=== PATIENT | female | born 1935 | race Caucasian/White ===

== ENCOUNTER 2017-02-08 10:47 | Inpatient (IN) | payer MEDICARE, OTHER ==
--- NOTE | 2017-02-08 11:06 | ER Document Report ---
ED Dizziness/Weakness - General Stated Complaint: DOES NOT FEEL RIGHT Time Seen by Provider: 02/08/17 10:55 Mode of Arrival: Medic Information source: Patient TRAVEL OUTSIDE OF THE [place] 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 She had a similar episode on the way in to the emergency department. She reports that she is just so tired she can't keep her awake. She reports symptoms now for approximately 2 days. She admits to working outside. She has no focal weakness that she knows but she is so weak she can barely walk. She denies any pain including headache and chest discomfort. She has had some mild shortness of breath with exertion as well. No speech or swallowing problems that she reports though EMS reported to staff that she was having some difficulty with speaking. Patient does report having a history of petit mal seizures for approximately 26 is and had been on Depakote but came off of Depakote and has not had any for many years now. She does continue to take Aggrenox - Related Data Allergies/Adverse Reactions: carbamazepine [From Tegretol] Allergy (Verified 02/08/17 11:20) levofloxacin [From Levaquin] Allergy (Verified 02/08/17 11:20) Past Medical History - General Information source: Patient - Social History Smoking Status: Never Smoker Family History: Reviewed & Not Pertinent Neurological Medical History: Reports: Hx Seizures, Other - TIA Endocrine Medical History: Denies: Hx Diabetes Mellitus Type 1, Hx Diabetes Mellitus Type 2 Malignancy Medical History: Reports: None Review of Systems - Review of Systems -: Yes All other systems reviewed and negative Physical Exam - Vital signs Vitals: Pulse Resp BP Pulse Ox 70 17 173/81 H 98 02/08/17 10:55 02/08/17 10:55 02/08/17 10:55 02/08/17 10:55 Interpretation: Hypertensive - Notes Notes: GENERAL: VS as per nursing doc. Well-appearing, well-nourished and in no acute distress. Appears generally weak and falls asleep during exam requires tactile stimuli to come around HEAD: Atraumatic, normocephalic. EYES: Pupils equal round and reactive to light, extraocular movements intact, sclera anicteric, no conjunctival injection or discharge. ENT: Nares patent, oropharynx clear without exudates. Moist mucous membranes. NECK: Normal range of motion, supple, no carotid bruits. LUNGS: Breath sounds clear to auscultation bilaterally and equal. No wheezes rales or rhonchi. HEART: Normal S1S2. Regular rate and rhythm without murmurs. Equal peripheral pulses. ABDOMEN: Soft, non-tender. No appreciable mass. EXTREMITIES: Normal range of motion. No calf tenderness. Negative Homans. No edema. NEUROLOGICAL: GCS 15, Cranial nerves II-XII intact. Normal visual gupta. Normal speech without aphasia. No pronator drift. 5/5 RUE strength, 4/5 RLE strength with difficulty holding off the bed, 5/5 LUE strength, 5/5 LLE strength. No cerebellar abnormalities including normal finger-nose testing. Negative Babinski, 2+= DTR refelexes. PSYCH: Normal mood, somewhat flat affect. SKIN: Warm, Dry, no cyanosis, Cap refill < 2 sec. Course - Re-evaluation Re-evalutation: 02/08/17 11:07 Patient not TPA candidate with isolated right lower extremity weakness, consideration for other etiology and time of LKN. 02/08/17 12:07 We ambulated the patient in the room. She seemed somewhat unsteady and seemed to be weaker in her right leg. 02/08/17 16:36 The MRI shows appropriate aging of the brain. No clear infarct was noted. I discussed with the patient transferred for further neurology workup and she is refusing at this point stating she feels much better. She does agree to a road test and understands risks associated 02/08/17 17:16 We again discussed after ambulating and patient not doing very well somewhat ataxic even having to put arm up the next step. She does not want to go anywhere else but I am uncomfortable with her going home alone she has never used a walker and was ambulating well until the last day. Spoke with Dr. Keller , we will talk with Dr. Zhou. 02/08/17 17:22 Dr. Zhou will see and evaluate the patient. Reviewed laboratory studies with the patient. - Vital Signs Vital signs: Temp Pulse Resp BP Pulse Ox 97.5 F 61 14 149/98 H 98 02/08/17 11:10 02/08/17 16:55 02/08/17 18:03 02/08/17 18:03 02/08/17 18:03 - Laboratory Result Diagrams: 02/08/17 11:05 02/08/17 11:05 Laboratory results interpreted by me: 02/08/17 11:55 Urine Ascorbic Acid 20 H - Diagnostic Test Radiology reviewed: Image reviewed, Reports reviewed - CT scan of the head shows maxillary sinusitis but no other significant acute intracranial abnormality. Chest x-ray without acute disease. - EKG Interpretation by Hi EKG shows normal: Sinus rhythm - Rate normal at 64 with borderline left axis deviation and septal Q waves but no obvious injury current - Consults Dr. Ramirez Time consulted: 12:37 - he did not feel comfortable admitting the patient as we do not have a neurologist manager interventional and requested an MRI to be done as there is a question of seizures versus CVA. Discharge - Discharge Clinical Impression: Ataxia, Generalized weakness Condition: Fair Disposition: ADMITTED OBSERVATION Admitting Provider: Dr. Zhou Unit Admitted: Medical Floor
[2017-02-08 11:20] LABS: ABSOLUTE LYMPHOCYTES (AUTO) 1.7 10^3/uL (0.5-4.7); ABSOLUTE MONOCYTES (AUTO) 0.5 10^3/uL (0.1-1.4); ABSOLUTE NEUT (AUTO) 2.1 10^3/uL (1.7-8.2); BASOPHILS % (AUTO) 0.3 % (0-2); EOSINOPHILS % (AUTO) 0.7 % (0-6); HEMATOCRIT 39.6 % (36.0-47.0); HEMOGLOBIN 13.2 g/dL (12.0-15.5); LYMPHOCYTES % (AUTO) 39.5 % (13-45); MEAN CORPUSCULAR HEMOGLOBIN 27.7 pg (27.0-33.4); MEAN CORPUSCULAR HGB CONC 33.2 g/dL (32.0-36.0); MEAN CORPUSCULAR VOLUME 83 fl (80-97); MONOCYTES % (AUTO) 11.8 % (3-13); RED BLOOD COUNT 4.75 10^6/uL (3.72-5.28); RED CELL DISTRIBUTION WIDTH 13.8 % (11.5-14.0); SEGMENTED NEUTROPHILS % (AUTO) 47.7 % (42-78); WHITE BLOOD COUNT 4.4 10^3/uL (4.0-10.5)
[2017-02-08 11:31] LABS: PROTHROMBIN TIME 12.6 SEC (11.4-15.4)
[2017-02-08 11:42] LABS: ALANINE AMINOTRANSFERASE 27 U/L (9-52); ALBUMIN 4.2 g/dL (3.5-5.0); ALKALINE PHOSPHATASE 75 U/L (38-126); ANION GAP 8 (5-19); ASPARTATE AMINO TRANSFERASE 21 U/L (14-36); BILIRUBIN,DIRECT 0.3 mg/dL (0.0-0.4); BILIRUBIN,TOTAL 0.7 mg/dL (0.2-1.3); BLOOD UREA NITROGEN 18 mg/dL (7-20); CALCIUM 9.8 mg/dL (8.4-10.2); CARBON DIOXIDE 26 mmol/L (22-30); CHLORIDE 106 mmol/L (98-107); CREATININE RESULT 0.76 mg/dL (0.52-1.25); GLUCOSE 88 mg/dL (75-110); POTASSIUM 4.3 mmol/L (3.6-5.0); SODIUM 139.5 mmol/L (137-145); TOTAL PROTEIN 6.8 g/dL (6.3-8.2)
[2017-02-08 12:14] LABS: APPEARANCE,URINE SLIGHTLY-CLOUDY; BILIRUBIN,URINE NEGATIVE (NEGATIVE); GLUCOSE, URINE NEGATIVE (NEGATIVE); KETONES,URINE NEGATIVE (NEGATIVE); LEUKOCYTE ESTERASE,URINE NEGATIVE (NEGATIVE); NITRITE,URINE NEGATIVE (NEGATIVE); PROTEIN,URINE NEGATIVE (NEGATIVE); URINE SPECIFIC GRAVITY 1.014; UROBILINOGEN,URINE NEGATIVE mg/dL (<2.0)
--- NOTE | 2017-02-08 18:49 | PDOC H&P ---
History of Present Illness Admission Date/PCP: SUKH NORTON MD Patient complains of: weakness and "I couldn't talk" History of Present Illness: SHARITA CORNELL is a 81 year old female presents to the ED with a myriad of complaints that I will try to outline below. She reports a viral upper respiratory infection in November of this year, evaluated at [facility] for temperature of 103 and given IV fluids and Zithromax with resolution of her fever but ever since that time she has had a dull frontal headache, generalized weakness, exertional dyspnea, exercise fatigue, difficulty sleeping, on and off constipation, heat intolerance, ankle cramping during the night. She was seen at her PCP office this morning for routine annual follow-up blood while lying on the table awaiting her doctor's arrival, she experienced symptoms of inability to talk or move. She states this came on rather suddenly and without warning, lasted several minutes unsure the exact amount of time and spontaneously resolved. She was aware of her surroundings hear people talking but when she tried to call out for help she couldn't do so and when she tried to get up off the table she could not move her arms or legs and could not turn her head. She also reports right greater than left legs went numb. She has never had anything like this before. She had a "mini stroke" in 2014 spending 3 days at [facility] undergoing a full workup and had no residual deficits. Her initial symptoms included weakness of her bilateral lower extremities, and inability to control her extremities and an inability to talk. She is supposed to be taking Aggrenox twice a day and Crestor nightly but often forgets to take her evening medications. 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 She has never been seen by a seizure specialist or neurologist and last known seizure was 23 years ago, so her PCP has weaned her off her long-term Depakote over the last several years with her last dose given over a year ago. 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 ER physician attempted to ambulate her anticipating possible discharge home but she had a very broad-based uneven unsteady gait reaching out with her right arm steady herself and he did not feel comfortable sending her home at this time, asking us to admit for overnight observation and further evaluation. Past Medical History Cardiac Medical History: Reports: Hyperlipidema Pulmonary Medical History: Reports: None Neurological Medical History: Reports: Seizures, Other - TIA Denies: Migraine Endocrine Medical History: Denies: Diabetes Mellitus Type 1, Diabetes Mellitus Type 2 Malignancy Medical History: Reports: None Musculoskeltal Medical History: Reports: None Psychiatric Medical History: Reports: None Traumatic Medical History: Reports: None Past Surgical History Past Surgical History: Reports: Section, Cholecystectomy, Tonsillectomy Social History Information Source: Patient Smoking Status: Never Smoker Frequency of Alcohol Use: None Hx Recreational Drug Use: No Hx Prescription Drug Abuse: No - Advance Directive Resuscitation Status: Full Code Family History Family History: CVA Parental Family History Reviewed: Yes - father had seizures, mother had strokes Children Family History Reviewed: Yes Sibling(s) Family History Reviewed.: Yes Medication/Allergy Allergies/Adverse Reactions: carbamazepine [From Tegretol] Allergy (Verified 02/08/17 11:20) levofloxacin [From Levaquin] Allergy (Verified 02/08/17 11:20) Review of Systems Constitutional: PRESENT: as per HPI Eyes: ABSENT: visual disturbances Ears: ABSENT: hearing changes Nose, Mouth, and Throat: ABSENT: vertigo Cardiovascular: PRESENT: as per HPI. ABSENT: chest pain Respiratory: PRESENT: as per HPI. ABSENT: sputum Gastrointestinal: PRESENT: as per HPI. ABSENT: abdominal pain, nausea, vomiting Genitourinary: PRESENT: other - Dark, concentrated urine Musculoskeletal: PRESENT: as per HPI Neurological: PRESENT: as per HPI Psychiatric: ABSENT: anxiety, depression Endocrine: PRESENT: as per HPI Hematologic/Lymphatic: ABSENT: easy bleeding, easy bruising Physical Exam Vital Signs: Temp Pulse Resp BP Pulse Ox 97.5 F 61 17 128/71 H 97 02/08/17 11:10 02/08/17 16:55 02/08/17 16:55 02/08/17 16:55 02/08/17 16:55 Intake & Output 05/15/17 05/16/17 05/17/17 06:59 06:59 06:59 Weight 53.07 kg PHYSICAL EXAM GENERAL: NAD; well developed, well nourished; no obese; alert and oriented to person, place, time, situation HEENT: normocephalic, atraumatic; EOMI, PERRLA, no conjunctival injection, no scleral icterus; oral mucosa moist, neck supple, no LAD, normal ROM RESPIRATORY: no accessory muscle use, no increased WOB, good air entry bilaterally; no wheezes, rales, rhonchi; no inspiratory crackles CARDIO: no JVD; RRR; no systolic murmur; no tachycardia VASCULAR: no carotid bruit; no abdominal bruit; no pallor; 2+ radial, DP pulse ; normal capillary refill GI: soft; nondistended; normal bowel sounds; no hepato spleno megaly; no rebound, rigidity, guarding; nontender NEURO: Decreased bilateral patella reflexes; normal sensation; motor function- right arm weak compared to the left with very subtle right pronator drift; gait abnl with wide broad-based unsteady gait; no dysarthria; no nystagmus; tongue protrudes midline; normal finger to nose; able to cross midline with finger to ear; unable to stand with eyes closed to check Rhomberg; no clonus MSK: normal ROM hips; no tenderness EXTREMITIES: no calf tender; no palpable cords in calf; no clubbing, cyanosis , pedal edema PSYCH: normal affect, normal mood SKIN: warm; moist; no petechiae; no telengectasias; no jaundice; no rash Results Laboratory Results: 02/08/17 11:05 02/08/17 11:05 02/08/17 02/08/17 02/08/17 11:05 11:05 11:55 WBC 4.4 RBC 4.75 Hgb 13.2 Hct 39.6 MCV 83 MCH 27.7 MCHC 33.2 RDW 13.8 Plt Count 199 Seg Neutrophils % 47.7 Lymphocytes % 39.5 Monocytes % 11.8 Eosinophils % 0.7 Basophils % 0.3 Absolute Neutrophils 2.1 Absolute Lymphocytes 1.7 Absolute Monocytes 0.5 Absolute Eosinophils 0.0 Absolute Basophils 0.0 Sodium 139.5 Potassium 4.3 Chloride 106 Carbon Dioxide 26 Anion Gap 8 BUN 18 Creatinine 0.76 Est GFR ( Amer) > 60 Est GFR (Non-Af Amer) > 60 Glucose 88 Calcium 9.8 Magnesium 2.0 Total Bilirubin 0.7 AST 21 ALT 27 Alkaline Phosphatase 75 Total Protein 6.8 Albumin 4.2 Urine Color YELLOW Urine Appearance SLIGHTLY-CLOUDY Urine pH 7.0 Ur Specific [place] 1.014 Urine Protein NEGATIVE Urine Glucose (UA) NEGATIVE Urine Ketones NEGATIVE Urine Blood NEGATIVE Urine Nitrite NEGATIVE Ur Leukocyte Esterase NEGATIVE Urine WBC (Auto) 1 Urine RBC (Auto) 2 02/08/17 11:05 Troponin I < 0.012 Impressions: Chest X-Ray 02/08/17 11:11 IMPRESSION: NO ACUTE RADIOGRAPHIC FINDING IN THE CHEST. Head CT 02/08/17 11:11 IMPRESSION: Mild left maxillary sinus disease with no acute intracranial pathology. Head MRI 02/08/17 12:38 IMPRESSION: Age-appropriate spotty white matter disease in the bifrontal and biparietal regions. No MR evidence of acute ischemic change, acute intracranial hemorrhage mass effect or shift. No posterior fossa lesions are identified. Status: Image reviewed by me - Agree with radiology, there is an area on T2 imaging in the right parietal that could be subacute but on diffusion-weighted imaging argues against. Assessment & Plan - Diagnosis (1) Generalized weakness Is this a current diagnosis for this admission?: YesPlan: Unclear etiology. Will complete the metabolic workup with phosphorus, CK, CK-MB , TSH, free T4. 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 (2) Ataxic gait Is this a current diagnosis for this admission?: YesPlan: Unclear etiology. Check B12 level. Consult physical therapy. Check orthostatic vital signs. Check bilateral carotid Dopplers. (3) Seizure disorder Is this a current diagnosis for this admission?: YesPlan: Unknown whether this is recurrent for her or not, we'll check an EEG in the off chance we might get her answer. Patient was instructed regarding signs and symptoms of recurrent seizures. She may need outpatient neurologic evaluation for recurrent symptoms. Monitor overnight for recurrent seizure activity. - Time Time Spent: Greater than 70 Minutes Medications reviewed and adjusted accordingly: Yes Anticipated discharge: Home Within: within 24 hours - Plan Summary Plan Summary: Overall rather confusing clinical picture with a myriad of symptoms that don't all tie together neatly under a single diagnosis. Perform the above workup as outlined but I am not convinced that all find pathologic process or etiology of her symptoms. If no recurrence then will discharge home with close outpatient follow-up through her PCP.
[2017-02-08] MEDS ORDERED: ENOXAPARIN SODIUM INJ 40 MG/0.4 ML DISP.SYRIN SUBCUT ONE (19:30)
[2017-02-08] MEDS: NORMAL SALINE 1000 ML 1,000 ML IV PRN (21:10)
--- NOTE | 2017-02-08 22:10 | EKG REPORT ---
SEVERITY:- ABNORMAL ECG - SINUS RHYTHM BORDERLINE LEFT AXIS DEVIATION CONSIDER ANTEROSEPTAL INFARCT : Confirmed by: Jessica Benavides MD 08-Feb-2017 22:10:06
[2017-02-09 00:09] LABS: PHOSPHORUS 3.7 mg/dL (2.5-4.5)
[2017-02-09 02:28] LABS: THYROID STIMULATING HORMONE 4.11 uIU/mL (0.47-4.68)
[2017-02-09] MEDS: ENOXAPARIN SODIUM INJ 40 MG/0.4 ML DISP.SYRIN SUBCUT SCH (08:00)
[2017-02-09] MEDS ORDERED: ASPIRIN/DIPYRIDAMOLE 25-200 MG 1 CAP.SR CPMP.12HR PO ONE (10:53)
--- NOTE | 2017-02-09 16:38 | PROGRESS NOTE E ---
Progress Note NAME: SHARITA CORNELL : 1935 AGE: 81Y DATE: 02/09/2017 ROOM: 308 SUBJECTIVE: Unfortunately, the patient suffered another episode during the night where she had word salad, word searching, and an expressive aphasia. This occurred while talking with her grandson on the phone, who also happens to be at the bedside today and confirms that suddenly in mid-sentence, all he got from her was random words strung together that seemed to make no sense. Both she and he denied that there was any slurring of her words. She states immediately thereafter, she had an intense headache under her right eye that lasted less than an hour, and some confusion that persisted for approximately 30 to 45 minutes as well. She denies any numbness or tingling, or other neurologic symptoms. She did not have the lack of movements as previously seen in her doctor's office the day before. There was no aura or any indication that something bad was about to happen. In fact, she was feeling significantly better and was making plans with her grandson for discharge today. She was evaluated by Dr. Kerr, the covering repairer and checker, who ordered a stat CT of the head that shows no acute changes. There is also some lab work that has been ordered, but those results are still pending; understanding that the computer system is down, causing a slight delay in the results' reporting. She has had no recurrence of these symptoms since then. She was transferred down to the [facility] for close monitoring. OBJECTIVE: Rapid response notes are reviewed. Nurses' notes are reviewed with the nurse at the bedside. VITAL SIGNS: Currently stable. GENERAL: I find her sitting upright in the bedside chair conversing with her grandson, alert and oriented to person, place and time. Speech is clear and lucid. There is no tangential thinking, and thoughts and responses are appropriate. NEUROLOGICALLY: She remained intact. In fact, the right pronator drift and right arm weakness evident yesterday is not today. There are no lateralizing or focal deficits evident on today's neurologic exam. Even her patellar reflexes have returned to normal from their diminished state yesterday. CHEST: Is clear to auscultation bilaterally. She is breathing easily without any respiratory distress. ABDOMEN: Is soft, nontender, nondistended. There are no carotid or abdominal bruits. EXTREMITIES: Strength in her upper and lower extremities are at least 4/5 and really closer to 5/5. LABORATORIES: Are reviewed. See chart for details. ASSESSMENT: TRANSIENT NEUROLOGIC DEFICIT, WORRISOME FOR TIA. OTHER POSSIBILITIES INCLUDE COMPLEX PARTIAL SEIZURES, GIVEN HER HISTORY OF PETIT MAL SEIZURES. PLAN: Will resume her Aggrenox in b.i.d. dosing and increase her Crestor to the maximum daily dose, empirically treating what I suspect are transient ischemic attacks. However, given her history of seizure activity and discontinuation of her antiepileptic medication in the last year, certainly raises the possibility of recurrent or different type seizures like a partial-complex. We are still awaiting the echocardiogram, EEG, and carotid Dopplers. I am also awaiting laboratory results ordered including a phosphorus and B12 level that may shed some light on this. Her TSH was normal. A free T4 is still pending from this morning. If the results of this testing are negative, may be necessary to contact neurology by telephone. We do not have neurologists available at this facility to decide whether empiric treatment with a medication like Keppra for partial complex seizures to prevent a recurrence now that she has had 2 episodes in the last 12 hours. DICTATING PHYSICIAN: NATASHA MCCORMICK M.D. [id number] PHY#: [id number] ID: [id number] JOB#: [id number] ACCT: [id number] cc: >
[2017-02-09] MEDS: ATORVASTATIN CALCIUM 80 MG TABLET PO SCH (22:07)
[2017-02-09] MEDS: ASPIRIN/DIPYRIDAMOLE 25-200 MG 1 CAP.SR CPMP.12HR PO SCH (22:07)
[2017-02-10 09:19] LABS: BLOOD UREA NITROGEN 19 mg/dL (7-20); CALCIUM 9.8 mg/dL (8.4-10.2); CHLORIDE 106 mmol/L (98-107); CREATININE RESULT 0.76 mg/dL (0.52-1.25); GLUCOSE 78 mg/dL (75-110); POTASSIUM 4.6 mmol/L (3.6-5.0)
[2017-02-10 09:20] LABS: ALANINE AMINOTRANSFERASE 32 U/L (9-52); ALBUMIN 4.3 g/dL (3.5-5.0); ALKALINE PHOSPHATASE 69 U/L (38-126); ANION GAP 8 (5-19); ASPARTATE AMINO TRANSFERASE 25 U/L (14-36); BILIRUBIN,DIRECT 0.3 mg/dL (0.0-0.4); BILIRUBIN,TOTAL 0.5 mg/dL (0.2-1.3); CARBON DIOXIDE 29 mmol/L (22-30); SODIUM 142.6 mmol/L (137-145)
[2017-02-10 09:21] LABS: TOTAL PROTEIN 6.7 g/dL (6.3-8.2)
[2017-02-10 09:22] LABS: ABSOLUTE EOSINOPHILS # (AUTO) 0.1 10^3/uL (0.0-0.6); ABSOLUTE MONOCYTES (AUTO) 0.5 10^3/uL (0.1-1.4); ABSOLUTE NEUT (AUTO) 2.3 10^3/uL (1.7-8.2); BASOPHILS % (AUTO) 0.2 % (0-2); EOSINOPHILS % (AUTO) 1.7 % (0-6); HEMATOCRIT 40.5 % (36.0-47.0); HEMOGLOBIN 13.2 g/dL (12.0-15.5); HGB HCT DIFFERENCE -0.9; LYMPHOCYTES % (AUTO) 41.1 % (13-45); MEAN CORPUSCULAR HEMOGLOBIN 27.5 pg (27.0-33.4); MEAN CORPUSCULAR HGB CONC 32.5 g/dL (32.0-36.0); MEAN CORPUSCULAR VOLUME 85 fl (80-97); MONOCYTES % (AUTO) 9.4 % (3-13); RED BLOOD COUNT 4.79 10^6/uL (3.72-5.28); RED CELL DISTRIBUTION WIDTH 13.6 % (11.5-14.0); SEGMENTED NEUTROPHILS % (AUTO) 47.6 % (42-78); WHITE BLOOD COUNT 4.8 10^3/uL (4.0-10.5)
[2017-02-10] MEDS: ENOXAPARIN SODIUM INJ 40 MG/0.4 ML DISP.SYRIN SUBCUT SCH (09:56)
[2017-02-10] MEDS: ASPIRIN/DIPYRIDAMOLE 25-200 MG 1 CAP.SR CPMP.12HR PO SCH ×2 (09:56→22:30)
[2017-02-10] MEDS: ACETAMINOPHEN 325 MG TABLET PO PRN (12:47)
[2017-02-10] MEDS: NORMAL SALINE 1000 ML 1,000 ML IV PRN (13:14)
--- NOTE | 2017-02-10 14:09 | XCELERA REPORT ---
[address] [address] Transthoracic Echocardiogram Report Name: SHARITA CORNELL Age: 81 yrs Gender: Female : 1935 Patient Status: Inpatient Patient Location: 3N\S\308\S\A Study Date: 02/10/2017 10:34 AM Height: 60 in Weight: 117 lb BSA: 1.5 m2 Procedure: A complete two-dimensional transthoracic echocardiogram was performed (2D, M-mode, spectral and color flow Doppler). The study was technically good with many images being of high quality. Reason For Study: stroke like symptoms Ordering Physician: NATASHA MCCORMICK Performed By: Moriah Ritchie Interpretation Summary The left ventricular ejection fraction is normal. There is mild concentric left ventricular hypertrophy. The left ventricle is grossly normal size. Doppler measurements suggest pseudonormalized left ventricular relaxation, which is associated with grade II/IV or mild to moderate diastolic dysfunction No regional wall motion abnormalities noted. The right ventricular systolic function is normal. The right atrium is normal in size The left atrial size is normal. There is a trace amount of mitral regurgitation There is no mitral valve stenosis. No aortic regurgitation is present. There is no aortic valve stenosis There is a trace or physiologic amount of tricuspid regurgitation Tricuspid regurgitation jet envelope not well defined to measure RV systolic pressure accurately. The aortic root is not well visualized but is probably normal size. The inferior vena cava appeared normal and decreased > 50% with respiration (RAP 5-10 mmHg) There is no pericardial effusion. No definite cardiac source of CVA/TIA noted on this particular trans- thoracic study. Consider SONDRA if clinically indicated. May consider mobile cardiac telemetry monitoring (MCT) for ruling out transient AFIB. MMode/2D Measurements \T\ Calculations RVDd: 2.6 cm LVIDd: 4.0 cm FS: 41.3 % Ao root diam: 2.7 cm IVSd: 0.87 cm LVIDs: 2.3 cm EDV(Teich): 69.6 ml LVPWd: 0.92 cm ESV(Teich): 19.0 ml Ao root area: 5.5 cm2 EF(Teich): 72.8 % LA dimension: 2.7 cm Doppler Measurements \T\ Calculations MV E max marga: MV P1/2t max marga: Ao V2 max: LV V1 max P.5 cm/sec 78.5 cm/sec 118.9 cm/sec 3.9 mmHg MV A max marga: MV P1/2t: 64.8 msec Ao max PG: LV V1 max: 88.4 cm/sec 5.7 mmHg 99.2 cm/sec MV E/A: 0.90 MVA(P1/2t): 3.4 cm2 MV dec slope: 355.0 cm/sec2 MV dec time: 0.22 sec PA V2 max: PI end-d marga: TR max marga: 75.0 cm/sec 104.7 cm/sec 236.6 cm/sec PA max PG: TR max P.3 mmHg 22.4 mmHg Left Ventricle The left ventricle is grossly normal size. There is mild concentric left ventricular hypertrophy. The left ventricular ejection fraction is normal. Doppler measurements suggest pseudonormalized left ventricular relaxation, which is associated with grade II/IV or mild to moderate diastolic dysfunction. No regional wall motion abnormalities noted. Right Ventricle The right ventricle is grossly normal size. There is normal right ventricular wall thickness. The right ventricular systolic function is normal. Atria The right atrium is normal in size. The left atrial size is normal. Interarterial septum not well visualized and not well dopplered. Cannot comment on ASD/PFO presence. Mitral Valve The mitral valve leaflets are sclerotic, but show no functional abnormalities. There is no mitral valve stenosis. There is a trace amount of mitral regurgitation. Aortic Valve The aortic valve is grossly normal. There is no aortic valve stenosis. No aortic regurgitation is present. Tricuspid Valve The tricuspid valve is not well visualized, but is grossly normal. There is no tricuspid stenosis. There is a trace or physiologic amount of tricuspid regurgitation. Tricuspid regurgitation jet envelope not well defined to measure RV systolic pressure accurately. Pulmonic Valve The pulmonic valve is not well visualized. Great Vessels The aortic root is not well visualized but is probably normal size. The inferior vena cava appeared normal and decreased > 50% with respiration (RAP 5-10 mmHg). Effusions There is no pericardial effusion. Incidental Findings No definite cardiac source of CVA/TIA noted on this particular trans- thoracic study. Consider SONDRA if clinically indicated. May consider mobile cardiac telemetry monitoring (MCT) for ruling out transient AFIB. : NATASHA MCCORMICK > Kellie Borrero
--- NOTE | 2017-02-10 14:12 | EEG PRO FEE REPORT ---
EEG INTERPRETATION PATIENT NAME: SHARITA CORNELL ROOM#: 308 ORDER#: [id number] DATE OF STUDY: 02/10/2017 : 1935 REFERRING MD: NATASHA MCCORMICK M.D. DIAGNOSIS: Possible partial complex seizures. REPORT The background activity is somewhat low voltage fast at times posteriorly, but is also associated with a large degree of motion artifact. For the age, no clear focal slowing or amplitude asymmetry is noted. The fast activity of beta posteriorly could point to drug affect or toxicity, but again there is a lot of motion artifact obscuring the background. Clinical correlation recommended. IMPRESSION Probably within normal limits. INTERPRETING PHYSICIAN: SOMMER DIXON M.D. /: AN TT: 1407 ID: [id number] /: [id number] TD: [id number] JOB: [id number] cc:Elijah CHOI M.D. >
[2017-02-10] MEDS ORDERED: CYANOCOBALAMIN (VITAMIN B-12) INJ 1000 MCG/1 ML VIAL IM ONE (16:21)
--- NOTE | 2017-02-10 16:26 | PDOC PROGRESS REPORT ---
Subjective Progress Note for:: 02/10/17 Subjective:: reason for visit: f/u TIA, possible seizures hospital course: SHARITA CORNELL is a 81 year old female presents to the ED with a myriad of complaints that I will try to outline below. She reports a viral upper respiratory infection in November of this year, evaluated at [facility] for temperature of 103 and given IV fluids and Zithromax with resolution of her fever but ever since that time she has had a dull frontal headache, generalized weakness, exertional dyspnea, exercise fatigue, difficulty sleeping, on and off constipation, heat intolerance, ankle cramping during the night. She was seen at her PCP office this morning for routine annual follow-up blood while lying on the table awaiting her doctor's arrival, she experienced symptoms of inability to talk or move. She states this came on rather suddenly and without warning, lasted several minutes unsure the exact amount of time and spontaneously resolved. She was aware of her surroundings hear people talking but when she tried to call out for help she couldn't do so and when she tried to get up off the table she could not move her arms or legs and could not turn her head. She also reports right greater than left legs went numb. She has never had anything like this before. She had a "mini stroke " in 2014 spending 3 days at [facility] undergoing a full workup and had no residual deficits. Her initial symptoms included weakness of her bilateral lower extremities, and inability to control her extremities and an inability to talk. She is supposed to be taking Aggrenox twice a day and Crestor nightly but often forgets to take her evening medications. 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 She has never been seen by a seizure specialist or neurologist and last known seizure was 23 years ago, so her PCP has weaned her off her long-term Depakote over the last several years with her last dose given over a year ago. 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 ER physician attempted to ambulate her anticipating possible discharge home but she had a very broad-based uneven unsteady gait reaching out with her right arm steady herself and he did not feel comfortable sending her home at this time, asking us to admit for overnight observation and further evaluation. echo shows no valvular disease and no source for embolic disease; initial EEG is poor quality with motion artifact obscuring definitive analysis; carotid dopplers show bilat mild plaque but no occlusive disease and good antegrade flow in vertebral arteries. she has had no further episodes or symptoms since night of admission. she denies fevers, chills, chest pain, palpitations, abdominal pain, N/V/D. she is still having global dull aching MYLES that waxes and wanes and she notes symptoms of presentation in and around time of worst MYLES, not clear then if this is aura or residual effect, I do not believe it is cause and effect however. Physical Exam Vital Signs: Temp Pulse Resp BP Pulse Ox 97.2 F 115 H 19 120/60 100 02/10/17 12:00 02/10/17 14:00 02/10/17 12:00 02/10/17 12:00 02/10/17 12:00 Intake & Output 02/09/17 02/10/17 02/11/17 06:59 06:59 06:59 Intake Total 100 237 Balance 100 237 Weight 55 kg General appearance: PRESENT: no acute distress, cooperative, well-developed, well-nourished Head exam: PRESENT: atraumatic Eye exam: PRESENT: EOMI, PERRLA. ABSENT: conjunctival injection, nystagmus, scleral icterus Mouth exam: PRESENT: moist, neck supple Throat exam: ABSENT: post pharyngeal erythema Neck exam: PRESENT: full ROM. ABSENT: carotid bruit, JVD, lymphadenopathy, meningismus, tenderness, thyromegaly Respiratory exam: PRESENT: clear to auscultation ricardo, unlabored. ABSENT: accessory muscle use Cardiovascular exam: PRESENT: RRR Pulses: PRESENT: normal carotid pulses, normal radial pulses Vascular exam: PRESENT: normal capillary refill GI/Abdominal exam: PRESENT: normal bowel sounds, soft. ABSENT: tenderness Extremities exam: ABSENT: joint swelling, pedal edema, tenderness Musculoskeletal exam: PRESENT: full ROM. ABSENT: tenderness Neurological exam: PRESENT: alert, awake, oriented to person, oriented to place , oriented to time, oriented to situation Psychiatric exam: PRESENT: appropriate affect, normal mood Skin exam: PRESENT: dry, warm Results Laboratory Results: 02/09/17 13:35 02/09/17 13:35 02/09/17 02/09/17 13:35 13:35 WBC 4.8 RBC 4.79 Hgb 13.2 Hct 40.5 MCV 85 MCH 27.5 MCHC 32.5 RDW 13.6 Plt Count 197 Seg Neutrophils % 47.6 Lymphocytes % 41.1 Monocytes % 9.4 Eosinophils % 1.7 Basophils % 0.2 Absolute Neutrophils 2.3 Absolute Lymphocytes 2.0 Absolute Monocytes 0.5 Absolute Eosinophils 0.1 Absolute Basophils 0.0 Sodium 142.6 Potassium 4.6 Chloride 106 Carbon Dioxide 29 Anion Gap 8 BUN 19 Creatinine 0.76 Est GFR ( Amer) > 60 Est GFR (Non-Af Amer) > 60 Glucose 78 Calcium 9.8 Total Bilirubin 0.5 AST 25 ALT 32 Alkaline Phosphatase 69 Total Protein 6.7 Albumin 4.3 Impressions: Chest X-Ray 02/08/17 11:11 IMPRESSION: NO ACUTE RADIOGRAPHIC FINDING IN THE CHEST. Head MRI 02/08/17 12:38 IMPRESSION: Age-appropriate spotty white matter disease in the bifrontal and biparietal regions. No MR evidence of acute ischemic change, acute intracranial hemorrhage mass effect or shift. No posterior fossa lesions are identified. Head CT 02/09/17 00:00 IMPRESSION: No acute findings. If there is concern for acute ischemia, consider CT or MRI surveillance within 48-72 hours. Carotid Doppler Study 02/10/17 00:00 IMPRESSION: NO HEMODYNAMICALLY SIGNIFICANT STENOSIS. Assessment & Plan - Diagnosis (1) Generalized weakness Is this a current diagnosis for this admission?: YesPlan: Unclear etiology. improved. (2) Ataxic gait Is this a current diagnosis for this admission?: YesPlan: Unclear etiology. B12 level borderline low, will give single dose. Consult physical therapy. (3) Seizure disorder Is this a current diagnosis for this admission?: YesPlan: Unknown whether this is recurrent for her or not, EEG is equivocal at best and the recurrent nature of her symptoms I find worrisome, though not yet enough to initiate anti-epileptic. I do, however, feel another night of monitoring in hospital is prudent and judicious; any other suspicious activity and will start Keppra and refer to neurology as an outpatient. Patient was instructed regarding signs and symptoms of recurrent seizures. She may need outpatient neurologic evaluation for recurrent symptoms. Monitor overnight for recurrent seizure activity. (4) TIA (transient ischemic attack) Qualifiers: Transient cerebral ischemia type: other Qualified Code(s): G45.8 - Other transient cerebral ischemic attacks and related syndromes Is this a current diagnosis for this admission?: YesPlan: another possibility is escalating TIA, afterall she has hx of CVA thereby raising her risk and admittedly noncompliant with her prophylaxis meds also raising her risk. continue aggrenox and statin. no clear source of embolic disease identified on extensive workup. - Time Time Spent with patient: 35 or more minutes Medications reviewed and adjusted accordingly: Yes Anticipated discharge: Home Within: within 24 hours
[2017-02-10] MEDS: ATORVASTATIN CALCIUM 80 MG TABLET PO SCH (22:30)
[2017-02-11] MEDS: ACETAMINOPHEN 325 MG TABLET PO PRN ×3 (00:25→20:49)
[2017-02-11] MEDS: ONDANSETRON HCL INJ/PF 4 MG/2 ML SDV IV PRN ×3 (01:28→14:55)
[2017-02-11] MEDS ORDERED: OXYCODONE HCL IR 5 MG TABLET PO PRN (05:40)
[2017-02-11] MEDS ORDERED: OXYCODONE HCL IR 5 MG TABLET ONE (05:46)
[2017-02-11] MEDS: ENOXAPARIN SODIUM INJ 40 MG/0.4 ML DISP.SYRIN SUBCUT SCH (08:03)
[2017-02-11] MEDS ORDERED: KETOROLAC TROMETHAMINE INJ/PF 30 MG/1 ML SDV IV ONE (09:09)
[2017-02-11] MEDS: ASPIRIN/DIPYRIDAMOLE 25-200 MG 1 CAP.SR CPMP.12HR PO SCH ×2 (09:19→21:06)
[2017-02-11 10:18] LABS: ANION GAP 9 (5-19); BLOOD UREA NITROGEN 15 mg/dL (7-20); CALCIUM 8.7 mg/dL (8.4-10.2); CARBON DIOXIDE 24 mmol/L (22-30); CHLORIDE 103 mmol/L (98-107); CREATINE KINASE 39 U/L (30-135); CREATININE RESULT 0.69 mg/dL (0.52-1.25); GLUCOSE 106 mg/dL (75-110); MAGNESIUM 1.6 mg/dL (1.6-2.3); PHOSPHORUS 4.1 mg/dL (2.5-4.5); POTASSIUM 4.1 mmol/L (3.6-5.0); SODIUM 135.7 mmol/L (137-145)
[2017-02-11] MEDS: MAGNESIUM SULFATE/D5W 1 GM/100 ML RTUPB IV SCH ×2 (13:46→15:20)
[2017-02-11] MEDS ORDERED: DEXAMETHASONE SOD PHOS INJ 10 MG/1 ML VIAL IV ONE (15:37)
[2017-02-11 16:10] LABS: ALANINE AMINOTRANSFERASE 602 U/L (9-52); ALBUMIN 3.4 g/dL (3.5-5.0); ALKALINE PHOSPHATASE 150 U/L (38-126); AMYLASE 49 U/L (30-110); BILIRUBIN,DIRECT 0.6 mg/dL (0.0-0.4); BILIRUBIN,TOTAL 1.4 mg/dL (0.2-1.3); LIPASE 119.4 U/L (23-300); TOTAL PROTEIN 5.2 g/dL (6.3-8.2)
[2017-02-11 16:17] LABS: ASPARTATE AMINO TRANSFERASE 745 U/L (14-36)
[2017-02-11] MEDS ORDERED: DEXAMETHASONE SOD PHOSPHATE 20 MG in DEXTROSE 5%-WATER 50 ML IV ONE (17:00)
--- NOTE | 2017-02-11 18:05 | PDOC PROGRESS REPORT ---
Subjective Progress Note for:: 02/11/17 Subjective:: reason for visit: f/u TIA, possible seizures hospital course: SHARITA CORNELL is a 81 year old female presents to the ED with a myriad of complaints that I will try to outline below. She reports a viral upper respiratory infection in November of this year, evaluated at [facility] for temperature of 103 and given IV fluids and Zithromax with resolution of her fever but ever since that time she has had a dull frontal headache, generalized weakness, exertional dyspnea, exercise fatigue, difficulty sleeping, on and off constipation, heat intolerance, ankle cramping during the night. She was seen at her PCP office this morning for routine annual follow-up blood while lying on the table awaiting her doctor's arrival, she experienced symptoms of inability to talk or move. She states this came on rather suddenly and without warning, lasted several minutes unsure the exact amount of time and spontaneously resolved. She was aware of her surroundings hear people talking but when she tried to call out for help she couldn't do so and when she tried to get up off the table she could not move her arms or legs and could not turn her head. She also reports right greater than left legs went numb. She has never had anything like this before. She had a "mini stroke " in 2014 spending 3 days at [facility] undergoing a full workup and had no residual deficits. Her initial symptoms included weakness of her bilateral lower extremities, and inability to control her extremities and an inability to talk. She is supposed to be taking Aggrenox twice a day and Crestor nightly but often forgets to take her evening medications. 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 She has never been seen by a seizure specialist or neurologist and last known seizure was 23 years ago, so her PCP has weaned her off her long-term Depakote over the last several years with her last dose given over a year ago. 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 ER physician attempted to ambulate her anticipating possible discharge home but she had a very broad-based uneven unsteady gait reaching out with her right arm steady herself and he did not feel comfortable sending her home at this time, asking us to admit for overnight observation and further evaluation. echo shows no valvular disease and no source for embolic disease; initial EEG is poor quality with motion artifact obscuring definitive analysis; carotid dopplers show bilat mild plaque but no occlusive disease and good antegrade flow in vertebral arteries. she has had no further episodes since night of admission. she denies fevers, chills, chest pain, palpitations, abdominal pain, N/V/D. she is still having global dull aching MYLES that waxes and wanes and she notes symptoms of presentation in and around time of worst MYLES, not clear then if this is aura or residual effect, I do not believe it is cause and effect however. ROS: Tuesday she took a turn for the worse with a new constellation of symptoms including intense muscle aches and cramps, arthralgias and now projectile vomiting without abdominal pain. stat labs show overnight change in her LFTs with a cholestasis pattern but she doesn't have a GB and ivory/lipase both normal. stat ct scan is pending. oddly enough her MYLES has resolved. the only new med is lipitor substituted for her usual crestor. total 10 systems reviewed and remaining systems are negative, in particular no chest pain or palpitations. Physical Exam Vital Signs: Temp Pulse Resp BP Pulse Ox 97.2 F 83 18 174/75 H 100 02/11/17 17:24 02/11/17 17:24 02/11/17 17:24 02/11/17 17:24 02/11/17 17:24 Intake & Output 02/10/17 02/11/17 02/12/17 06:59 06:59 06:59 Intake Total 100 861 120 Balance 100 861 120 Weight 55 kg 55 kg General appearance: PRESENT: mild distress, thin Head exam: PRESENT: atraumatic Eye exam: ABSENT: conjunctival injection, scleral icterus Mouth exam: PRESENT: dry mucosa, neck supple Neck exam: ABSENT: meningismus, tenderness Respiratory exam: PRESENT: clear to auscultation ricardo. ABSENT: accessory muscle use Cardiovascular exam: PRESENT: RRR, tachycardia GI/Abdominal exam: PRESENT: normal bowel sounds, soft. ABSENT: distended, guarding, rebound, rigid, tenderness Extremities exam: PRESENT: full ROM. ABSENT: calf tenderness, joint swelling, pedal edema Musculoskeletal exam: PRESENT: ambulatory, full ROM. ABSENT: tenderness Neurological exam: PRESENT: alert, awake, oriented to person, oriented to place , oriented to time, oriented to situation Psychiatric exam: PRESENT: anxious, normal mood Results Laboratory Results: 02/09/17 13:35 02/11/17 09:51 02/11/17 02/11/17 09:51 09:51 Sodium 135.7 L Potassium 4.1 Chloride 103 Carbon Dioxide 24 Anion Gap 9 BUN 15 Creatinine 0.69 Est GFR ( Amer) > 60 Est GFR (Non-Af Amer) > 60 Glucose 106 Calcium 8.7 Phosphorus 4.1 Magnesium 1.6 Total Bilirubin 1.4 H AST 745 H ALT 602 H Alkaline Phosphatase 150 H Total Protein 5.2 L Albumin 3.4 L Amylase 49 Lipase 119.4 02/11/17 09:51 Creatine Kinase 39 Impressions: Chest X-Ray 02/08/17 11:11 IMPRESSION: NO ACUTE RADIOGRAPHIC FINDING IN THE CHEST. Head MRI 02/08/17 12:38 IMPRESSION: Age-appropriate spotty white matter disease in the bifrontal and biparietal regions. No MR evidence of acute ischemic change, acute intracranial hemorrhage mass effect or shift. No posterior fossa lesions are identified. Head CT 02/09/17 00:00 IMPRESSION: No acute findings. If there is concern for acute ischemia, consider CT or MRI surveillance within 48-72 hours. Carotid Doppler Study 02/10/17 00:00 IMPRESSION: NO HEMODYNAMICALLY SIGNIFICANT STENOSIS. Assessment & Plan - Diagnosis (1) Hepatitis Is this a current diagnosis for this admission?: YesPlan: change to inpatient. unclear etiology, possible adverse drug reaction to the lipitor but she is already on statin at home, possible acute viral infection so will ck hepatitis and EBV titers, CRP, possible mesenteric ischemia given her age so ck CT with IV contrast, intolerant of oral contrast, and lactic acid ( her K and Phos and CO2 all normal on renal panel which is reassuring and her exam is totally benign). otherwise supportive care with decadron for the nausea , IVFs to replace those lost and antiemetics as needed. repeat labs in am. (2) Generalized weakness Is this a current diagnosis for this admission?: YesPlan: Unclear etiology. possibly related to the above. (3) Ataxic gait Is this a current diagnosis for this admission?: Yes (4) Seizure disorder Is this a current diagnosis for this admission?: Yes (5) TIA (transient ischemic attack) Qualifiers: Transient cerebral ischemia type: other Qualified Code(s): G45.8 - Other transient cerebral ischemic attacks and related syndromes Is this a current diagnosis for this admission?: Yes - Time Time Spent with patient: 35 or more minutes Medications reviewed and adjusted accordingly: Yes - Inpatient Certification Based on my medical assessment, after consideration of the patient's comorbidities, presenting symptoms, or acuity I expect that the services needed warrant INPATIENT care.: Yes I certify that my determination is in accordance with my understanding of Medicare's requirements for reasonable and necessary INPATIENT services [42 CFR 412.3e].: Yes Medical Necessity: Failure to Improve With Outpatient Therapy, Need Close Monitoring Due to Risk of Patient Decompensation, Need For IV Fluids, Risk of Complication if Not Cared For in Hospital
[2017-02-11] MEDS: NORMAL SALINE 1000 ML 1,000 ML IV PRN (21:12)
[2017-02-12 04:46] LABS: ABSOLUTE LYMPHOCYTES (AUTO) 0.6 10^3/uL (0.5-4.7); ABSOLUTE MONOCYTES (AUTO) 0.1 10^3/uL (0.1-1.4); ABSOLUTE NEUT (AUTO) 3.4 10^3/uL (1.7-8.2); BASOPHILS % (AUTO) 0.3 % (0-2); HEMATOCRIT 38.3 % (36.0-47.0); HEMOGLOBIN 13.1 g/dL (12.0-15.5); LYMPHOCYTES % (AUTO) 14.4 % (13-45); MEAN CORPUSCULAR HGB CONC 34.3 g/dL (32.0-36.0); MEAN CORPUSCULAR VOLUME 82 fl (80-97); MONOCYTES % (AUTO) 2.1 % (3-13); RED BLOOD COUNT 4.69 10^6/uL (3.72-5.28); RED CELL DISTRIBUTION WIDTH 13.6 % (11.5-14.0); SEGMENTED NEUTROPHILS % (AUTO) 83.2 % (42-78); WHITE BLOOD COUNT 4.1 10^3/uL (4.0-10.5)
[2017-02-12 05:07] LABS: ALANINE AMINOTRANSFERASE 505 U/L (9-52); ALBUMIN 3.8 g/dL (3.5-5.0); ALKALINE PHOSPHATASE 221 U/L (38-126); ANION GAP 9 (5-19); ASPARTATE AMINO TRANSFERASE 428 U/L (14-36); BILIRUBIN,DIRECT 0.8 mg/dL (0.0-0.4); BILIRUBIN,TOTAL 1.5 mg/dL (0.2-1.3); BLOOD UREA NITROGEN 11 mg/dL (7-20); C-REACTIVE PROTEIN 15.1 mg/L (<10.0); CALCIUM 8.8 mg/dL (8.4-10.2); CARBON DIOXIDE 22 mmol/L (22-30); CHLORIDE 106 mmol/L (98-107); CREATININE RESULT 0.68 mg/dL (0.52-1.25); GLUCOSE 135 mg/dL (75-110); POTASSIUM 4.3 mmol/L (3.6-5.0); SODIUM 136.8 mmol/L (137-145); TOTAL PROTEIN 6.1 g/dL (6.3-8.2)
[2017-02-12 07:48] VITALS: BP 127/69
[2017-02-12] MEDS: ENOXAPARIN SODIUM INJ 40 MG/0.4 ML DISP.SYRIN SUBCUT SCH (08:41)
--- NOTE | 2017-02-12 10:17 | PDOC DISCHARGE SUMMARY ---
General - Admit/Disc Date/PCP Admission Date/Primary Care Provider: 02/11/17 17:50 SUKH NORTON MD Discharge Date: 02/12/17 - Discharge Diagnosis (1) Hepatitis Is this a current diagnosis for this admission?: YesSummary: improving with resolution of the nausea and vomiting; ct a/p showed no liver abnl, in fact no intra-abd abnl at all. I suspect either a viral syndrome ( hepatitis and EBV titers still pending) or adverse drug reaction to the lipitor. she is to remain off her statin (crestor) for 30 days or until instructed otherwise by her PCP, f/u CMP next week and see her PCP next week as well. (2) Generalized weakness Is this a current diagnosis for this admission?: YesSummary: unclear etiology, possibly part of a viral syndrome, nevertheless is resolved. she is up ambulating without difficulty and stable for d/c home. (3) Ataxic gait Is this a current diagnosis for this admission?: YesSummary: unclear etiology; resolved. (4) Seizure disorder Is this a current diagnosis for this admission?: YesSummary: no clear evidence for seizures though her constellation of presenting symptoms was worrisome for same, her evaluation including EEG and MRI does not support this diagnosis. Furthermore she has not had recurrence and would recommend holding antiepileptic treatment until such time and then neuro referral for further evaluation and management. f/u with PCP next week, return to the ED for any recurrence. 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 she is to resume her Aggrenox and f/u with PCP next week. return to ED immediately for any recurrence. - Additional Information Resuscitation Status: Full Code Discharge Diet: As Tolerated Discharge Activity: Activity As Tolerated Home Medications: Aspirin/Dipyridamole [Aggrenox 25 mg-200 mg Capsule] 1 cap PO BID 02/10/17 Calcium Carbonate [Calcium] 1,200 mg PO DAILY 02/10/17 Cholecalciferol (Vitamin D3) [Vitamin D3 1000 Unit Tablet] 1,000 units PO DAILY 02/10/17 Multivitamin [Daily Multiple Vitamin] 1 tab PO DAILY 02/10/17 Meloxicam 15 mg PO DAILY 02/11/17 Aspirin/Dipyridamole [Aggrenox 25 mg/200 mg Capsule SA] 1 cap.sr PO Q12 cpmp.12hr 02/12/17 History of Present Illness Patient complains of: inablitiy to speak History of Present Illness: SHARITA CORNELL is a 81 year old female presents to the ED with a myriad of complaints that I will try to outline below. She reports a viral upper respiratory infection in November of this year, evaluated at [facility] for temperature of 103 and given IV fluids and Zithromax with resolution of her fever but ever since that time she has had a dull frontal headache, generalized weakness, exertional dyspnea, exercise fatigue, difficulty sleeping, on and off constipation, heat intolerance, ankle cramping during the night. She was seen at her PCP office this morning for routine annual follow-up blood while lying on the table awaiting her doctor's arrival, she experienced symptoms of inability to talk or move. She states this came on rather suddenly and without warning, lasted several minutes unsure the exact amount of time and spontaneously resolved. She was aware of her surroundings hear people talking but when she tried to call out for help she couldn't do so and when she tried to get up off the table she could not move her arms or legs and could not turn her head. She also reports right greater than left legs went numb. She has never had anything like this before. She had a "mini stroke" in 2014 spending 3 days at [facility] undergoing a full workup and had no residual deficits. Her initial symptoms included weakness of her bilateral lower extremities, and inability to control her extremities and an inability to talk. She is supposed to be taking Aggrenox twice a day and Crestor nightly but often forgets to take her evening medications. 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 She has never been seen by a seizure specialist or neurologist and last known seizure was 23 years ago, so her PCP has weaned her off her long-term Depakote over the last several years with her last dose given over a year ago. 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 ER physician attempted to ambulate her anticipating possible discharge home but she had a very broad-based uneven unsteady gait reaching out with her right arm steady herself and he did not feel comfortable sending her home at this time, asking us to admit for overnight observation and further evaluation. echo shows no valvular disease and no source for embolic disease; initial EEG is poor quality with motion artifact obscuring definitive analysis; carotid dopplers show bilat mild plaque but no occlusive disease and good antegrade flow in vertebral arteries. she has had no further episodes since night of admission. she denies fevers, chills, chest pain, palpitations, abdominal pain, N/V/D. she is still having global dull aching MYLES that waxes and wanes and she notes symptoms of presentation in and around time of worst MYLES, not clear then if this is aura or residual effect, I do not believe it is cause and effect however. Tuesday she took a turn for the worse with a new constellation of symptoms including intense muscle aches and cramps, arthralgias and now projectile vomiting without abdominal pain. stat labs show overnight change in her LFTs with a cholestasis pattern but she doesn't have a GB and ivory/lipase both normal. stat ct scan is pending. oddly enough her MYLES has resolved. the only new med is lipitor substituted for her usual crestor. total 10 systems reviewed and remaining systems are negative, in particular no chest pain or palpitations. stat ct ap failed to reveal a source. she was treated with IV decadron with resolution of her symptoms overnight, ate a full bfast this morning without difficulty and feels ready for d/c home this morning. her LFTs are trending down as well. she is stable for d/c at this time. Physical Exam Vital Signs: Temp Pulse Resp BP Pulse Ox 98.0 F 74 18 127/69 H 95 02/12/17 09:56 02/12/17 09:56 02/12/17 09:56 02/12/17 09:56 02/12/17 09:56 Intake & Output 02/11/17 02/12/17 02/13/17 06:59 06:59 06:59 Intake Total 0 Balance 0 Weight 54.4 kg General appearance: PRESENT: no acute distress, well-developed, well-nourished Head exam: PRESENT: atraumatic, normocephalic Eye exam: ABSENT: conjunctival injection, scleral icterus Mouth exam: PRESENT: moist, neck supple Neck exam: PRESENT: carotid bruit, full ROM. ABSENT: JVD, tenderness Respiratory exam: PRESENT: clear to auscultation ricardo, unlabored. ABSENT: accessory muscle use Cardiovascular exam: PRESENT: RRR. ABSENT: tachycardia Pulses: PRESENT: normal carotid pulses, normal radial pulses GI/Abdominal exam: PRESENT: normal bowel sounds, soft. ABSENT: guarding, mass, rebound, rigid, tenderness Extremities exam: ABSENT: calf tenderness, pedal edema Musculoskeletal exam: PRESENT: ambulatory, full ROM Neurological exam: PRESENT: alert, awake, oriented to person, oriented to place , oriented to time, oriented to situation Psychiatric exam: PRESENT: appropriate affect, normal mood Skin exam: PRESENT: warm. ABSENT: dry Results Laboratory Results: 02/12/17 03:47 02/12/17 03:47 02/11/17 02/12/17 02/12/17 18:28 03:47 03:47 WBC 4.1 RBC 4.69 Hgb 13.1 Hct 38.3 MCV 82 MCH 28.0 MCHC 34.3 RDW 13.6 Plt Count 170 Seg Neutrophils % 83.2 H Lymphocytes % 14.4 Monocytes % 2.1 L Eosinophils % 0.0 Basophils % 0.3 Absolute Neutrophils 3.4 Absolute Lymphocytes 0.6 Absolute Monocytes 0.1 Absolute Eosinophils 0.0 Absolute Basophils 0.0 Sodium 136.8 L Potassium 4.3 Chloride 106 Carbon Dioxide 22 Anion Gap 9 BUN 11 Creatinine 0.68 Est GFR ( Amer) > 60 Est GFR (Non-Af Amer) > 60 Glucose 135 H Lactic Acid 1.3 Calcium 8.8 Total Bilirubin 1.5 H AST 428 H ALT 505 H Alkaline Phosphatase 221 H C-Reactive Protein 15.1 H Total Protein 6.1 L Albumin 3.8 Impressions: Chest X-Ray 02/08/17 11:11 IMPRESSION: NO ACUTE RADIOGRAPHIC FINDING IN THE CHEST. Head MRI 02/08/17 12:38 IMPRESSION: Age-appropriate spotty white matter disease in the bifrontal and biparietal regions. No MR evidence of acute ischemic change, acute intracranial hemorrhage mass effect or shift. No posterior fossa lesions are identified. Head CT 02/09/17 00:00 IMPRESSION: No acute findings. If there is concern for acute ischemia, consider CT or MRI surveillance within 48-72 hours. Carotid Doppler Study 02/10/17 00:00 IMPRESSION: NO HEMODYNAMICALLY SIGNIFICANT STENOSIS. Abdomen/Pelvis CT 02/11/17 00:00 IMPRESSION: NO SIGNIFICANT OR ACUTE FINDINGS IN THE ABDOMEN OR PELVIS. CHRONIC CHANGES/BENIGN FINDINGS ABOVE. Qualifiers PATEINT BEING DISCHARGED WITH ANY OF THE FOLLOWING DIAGNOSIS?: No VTE patient discharged on overlapping Therapy?: No Reason(s) for not prescribing Overlap Therapy:: Not indicated Plan Discharge Plan: ok to d/c home, f/u with PCP next week Time Spent: Greater than 30 Minutes
[2017-02-13 12:53] LABS: EPSTEIN BARR EARLY AG IGG AB 24.2 U/mL (0.0-8.9)
== END 2017-02-12 10:27 | disposition home or self-care (01) | DRG 69 ==
LOC: ER 10:47 → EH 18:15 → 5 02-09 00:14 → 3N 02-09 04:30 → OBSVTOIN 02-11 17:50
PROVIDERS: ADMIT Internal Medicine; ATTEND Internal Medicine
DX: G45.9 Transient cerebral ischemic attack, unspecified (principal); K83.1 Obstruction of bile duct; B17.9 Acute viral hepatitis, unspecified; R27.0 Ataxia, unspecified; G40.909 Epilepsy, unspecified, not intractable, without status epilepticus; R53.1 Weakness; J06.9 Acute upper respiratory infection, unspecified; K59.00 Constipation, unspecified; E78.5 Hyperlipidemia, unspecified; Z90.49 Acquired absence of other specified parts of digestive tract; Z88.6 Allergy status to analgesic agent; Z88.3 Allergy status to other anti-infective agents; Z82.0 Family history of epilepsy and other diseases of the nervous system; Z82.3 Family history of stroke
CPT/HCPCS: 36415; 70450; 70551; 71010; 74177; 80048; 80053; 80074; 80076; 81001; 82150; 82550; 82553; 82607; 82962; 83036; 83605; 83690; 83735; 84100; 84439; 84443; 84484; 85025; 85610; 85730; 86140; 86256; 86663; 86664; 86665; 93005; 93010; 93306; 93880; 95819; 96360; 96361; 96372; 99285; G0378; G8978-GP; G8979-GP; G8980-GP; J1100; J1650; J1885; J2405; J3420; J3475; J3490; J7030

== ENCOUNTER → 2019-08-03 | Outpatient (CLI) | payer MEDICARE, OTHER ==
--- NOTE | 2019-08-03 12:30 | RADIOLOGY REPORT (SQ) ---
EXAM DESCRIPTION: MRI LUMBAR SPINE WITHOUT COMPLETED DATE/TIME: 08/03/2019 12:15 pm REASON FOR STUDY: LUMBAR RADICULOPATHY (M54.16) M54.16 RADICULOPATHY, LUMBAR REGION COMPARISON: None. TECHNIQUE: Sagittal and Axial imaging includes T1, T2, STIR and gradient echo sequences. Coronal T2/ HASTE imaging. LIMITATIONS: None. FINDINGS: VISUALIZED UPPER ABDOMEN: Limited evaluation. No acute or suspicious findings suggested. There are bilateral renal cysts noted. SEGMENTATION: No transitional anatomy. The lowest well-developed disc space is labeled L5-S1. ALIGNMENT: Anatomic. VERTEBRAE: Intact. BONE MARROW: Endplate changes with fatty marrow replacement at the L3-L4 level. DISC SIGNAL: Loss of normal water signal throughout the lumbar spine. Marked disc space narrowing at L1-L2 and L3-L4. Mild disc space narrowing at L2-L3. POSTERIOR ELEMENTS: Generally intact. No pars defect evident. HARDWARE: None in the spine. CORD AND CONUS: Normal in size and signal intensity. Conus at the appropriate level. SOFT TISSUES: No aortic aneurysm seen. No bulky retroperitoneal adenopathy or mass. No paraspinal mas s or fluid. L1-L2: Moderate central stenosis at L1-L2 secondary to annular disc bulging there is bilateral facet arthropathy. There is asymmetric narrowing of the left neural foramina. L2-L3: Mild central stenosis with bilateral facet arthropathy. Broad-based annular disc bulging. Ne ural foramina are patent. L3-L4: Disc space narrowing. No significant central canal narrowing. There is bilateral facet arthr opathy. No definite nerve root impingement. L4-L5: Normal height. Bilateral facet arthropathy. Mild right foraminal narrowing. Moderate left f oraminal narrowing. No central stenosis. L5-S1: Mild central canal narrowing. There is bilateral facet arthropathy. No significant foraminal narrowing. LOWER THORACIC: Incompletely imaged. No stenosis seen. SACRUM: Visualized upper sacrum intact. OTHER: No other significant findings. IMPRESSION: 1. There is multilevel spondylosis. 2. Moderate central stenosis at L1-L2 secondary to annular disc bulging and facet arthropathy. Ther e is asymmetric narrowing of the left neural foramina. 3. Mild central stenosis at L2-L3 secondary to annular disc bulging and facet arthropathy. Neural f oramina are patent. 4. Facet arthropathy at L3-L4. No central stenosis or nerve root impingement. 5. Bilateral foraminal narrowing left greater than right secondary to facet arthropathy. TECHNICAL DOCUMENTATION: JOB ID: [id number] [employer]- All Rights Reserved Reading location - IP/workstation name: [email or web address]
== END ==
LOC: RAD 11:21
PROVIDERS: ATTEND Internal Medicine
DX: M51.16 Intervertebral disc disorders with radiculopathy, lumbar region (principal)
CPT/HCPCS: 72148

== ENCOUNTER 2020-01-18 12:47 | Day surgery (SDC) | payer MEDICARE, OTHER ==
[~2020-01-18 12:47] MED LIST: SUCCINYLCHOLINE CHLORIDE INJ 200 MG/10 ML VIAL ONE
[2020-01-18] MEDS ORDERED: MIDAZOLAM 2 MG/2 ML INJ ONE (15:15)
[2020-01-18] MEDS ORDERED: ONDANSETRON HCL INJ/PF 4 MG/2 ML SDV ONE (15:15)
[2020-01-18] MEDS ORDERED: FENTANYL CITRATE INJ/PF 100 MCG/2 ML AMPUL ONE (15:15)
[2020-01-18] MEDS ORDERED: PROPOFOL INJ 200 MG/20 ML VIAL IV ONE (15:15)
[2020-01-18] MEDS ORDERED: GLUCAGON,HUMAN RECOMB 1 MG INJ ONE (16:03)
[2020-01-18] MEDS ORDERED: CEFAZOLIN INJ 1 GM VIAL ONE (16:32)
[2020-01-18] MEDS ORDERED: PROMETHAZINE HCL INJ 25 MG/1 ML VIAL IV PRN (16:46)
[2020-01-18] MEDS ORDERED: FENTANYL CITRATE INJ/PF 100 MCG/2 ML AMPUL IV PRN ×3 (16:46)
[2020-01-18] MEDS ORDERED: MEPERIDINE HCL/PF INJ 25 MG/1 ML DISP.SYRIN IV PRN (16:46)
[2020-01-18] MEDS ORDERED: DIPHENHYDRAMINE HCL 50 MG/ML VIAL IV PRN (16:46)
[2020-01-18] MEDS ORDERED: EPINEPHRINE INJ/PF 1 MG/1 ML AMPULE ONE (16:51)
--- NOTE | 2020-01-18 17:20 | Operative Report ---
Operative Report DATE OF SURGERY: 01/18/20 Operative Report: Pre-op diagnosis: Jaundice with dilated pancreatic and biliary ducts Post-op diagnosis: 1. Distal common bile duct stricture 2. Markedly dilated pancreatic and biliary tree Surgery: ERCP with cytology brushing, sphincterotomy and stent placement Medications: As per anesthesia Tissue removed: None Procedure: After informed consent obtained from patient, patient was placed under general anesthesia. The ERCP endoscope was then inserted into the esoph jeevna blindly and advanced into the stomach. The duodenum was entered and the ampulla was identified. Using the triple-lumen sphincterotomy catheter the pancreatic duct was initially cannulated and the pancreatogram was obtained. With multiple trials the common bile duct was freely cannulated. A cholangiogram was obtained . A good sized sphincterotomy was then performed using the endocut mode. Brushing was performed at the distal common bile duct. In the standard fashion a 5 cm 10 German stent was then placed without any difficulty. There was good flow of bile after the stent was placed. Patient tolerated procedure well. Ancef was given during the procedure. Findings Common bile duct: Marked dilation with a distal stricture status post brushing and stenting Intrahepatic ducts: Dilated Pancreatic duct: Markedly dilated and irregular Plan: Refer patient for endoscopic ultrasound and biopsy. CA-[id number] was 178 likely consistent with pancreatic neoplasm. OPERATION: .
--- NOTE | 2020-01-18 17:47 | RADIOLOGY REPORT (SQ) ---
EXAM DESCRIPTION: NO CHG FLUORO; ENDO CATH/BILIARY DUCT IMAGES COMPLETED DATE/TIME: 01/18/2020 5:35 pm; 01/18/2020 5:36 pm REASON FOR STUDY: ERCP W/STENT PLACEMENT R17 UNSPECIFIED JAUNDICE COMPARISON: None. FLUOROSCOPY TIME: 6.1 minutes TECHNIQUE: Intra-operative images acquired during surgical procedure to evaluate progress. NUMBER OF IMAGES: Cine fluoroscopic images. LIMITATIONS: None. FINDINGS: ERCP with stent placement. Correlate with operative note. IMPRESSION: IMAGE(S) OBTAINED DURING PROCEDURE. COMMENT: Quality ID [id number]: Final reports for procedures using fluoroscopy that document radiation exp osure indices, or exposure time and number of fluorographic images (if radiation exposure indices are not available) Please consult full operative report of the attending physician for description of the procedure. TECHNICAL DOCUMENTATION: JOB ID: [id number] 2010 [employer]- All Rights Reserved Reading location - IP/workstation name: [email or web address]
--- NOTE | 2020-01-18 17:47 | RADIOLOGY REPORT (SQ) ---
EXAM DESCRIPTION: NO CHG FLUORO; ENDO CATH/BILIARY DUCT IMAGES COMPLETED DATE/TIME: 01/18/2020 5:35 pm; 01/18/2020 5:36 pm REASON FOR STUDY: ERCP W/STENT PLACEMENT R17 UNSPECIFIED JAUNDICE COMPARISON: None. FLUOROSCOPY TIME: 6.1 minutes TECHNIQUE: Intra-operative images acquired during surgical procedure to evaluate progress. NUMBER OF IMAGES: Cine fluoroscopic images. LIMITATIONS: None. FINDINGS: ERCP with stent placement. Correlate with operative note. IMPRESSION: IMAGE(S) OBTAINED DURING PROCEDURE. COMMENT: Quality ID [id number]: Final reports for procedures using fluoroscopy that document radiation exp osure indices, or exposure time and number of fluorographic images (if radiation exposure indices are not available) Please consult full operative report of the attending physician for description of the procedure. TECHNICAL DOCUMENTATION: JOB ID: [id number] 2010 [employer]- All Rights Reserved Reading location - IP/workstation name: [email or web address]
[2020-01-18] MEDS ORDERED: NALOXONE HCL INJ/PF 0.4 MG/1 ML SDV ONE (18:35)
[2020-01-18 20:15] VITALS: BP 154/67
== END 2020-01-18 20:00 | disposition home or self-care (01) ==
LOC: OROUT 12:47
PROVIDERS: ATTEND Internal Medicine Gastroenterology
DX: K83.1 Obstruction of bile duct (principal); R17 Unspecified jaundice; R94.5 Abnormal results of liver function studies; K86.9 Disease of pancreas, unspecified; Z86.73 Personal history of transient ischemic attack (TIA), and cerebral infarction without residual deficits; K21.9 Gastro-esophageal reflux disease without esophagitis
CPT/HCPCS: 43262; 43274; 88104 ×2; 74328; 00732; C2617; Q9967; J2250; J0690; J0171; J3010; J2310; J0330; J2405; J2704; 732; 88173; J1610

== ENCOUNTER → 2020-01-25 | Outpatient (CLI) | payer MEDICARE, OTHER ==
[2020-01-25 14:49] LABS: ALBUMIN 4.1 g/dL (3.5-5.0); ALKALINE PHOSPHATASE 351 U/L (38-126); ASPARTATE AMINO TRANSFERASE 65 U/L (14-36); TOTAL PROTEIN 6.6 g/dL (6.3-8.2)
== END ==
LOC: OD 13:34
PROVIDERS: ATTEND Internal Medicine Gastroenterology
DX: R17 Unspecified jaundice (principal); R94.5 Abnormal results of liver function studies
CPT/HCPCS: 36415; 80076

== ENCOUNTER 2020-01-26 09:26 | Inpatient (IN) | payer MEDICARE, OTHER ==
[2020-01-26] MEDS ORDERED: NORMAL SALINE 500 ML IV ONE (10:31)
--- NOTE | 2020-01-26 10:36 | ER Document Report ---
ED General - General Chief Complaint: Abdominal Pain Stated Complaint: FEVER Time Seen by Provider: 01/26/20 10:07 Primary Care Provider: MAIRA SHANNON MD [Primary Care Provider] - Follow up as needed TRAVEL OUTSIDE OF THE [place] IN LAST 30 DAYS: No - HPI Notes: Patient is an 84-year-old female who presents to the emergency department for evaluation. Patient underwent ERCP with sphincterotomy on January 17. She was told to take her temperature twice daily, watch for fevers. She is scheduled for an endoscopic ultrasound on Tuesday in [place]. The patient states yesterday, after getting blood work, she started having some abdominal pain. Is in the epigastric region with radiation to the back. She states this intermittent. Is worsened by laying supine, nothing really seems to make it better. She is had some associated nausea without emesis. Before going to sleep her temperature was 99.5. She states she woke up in the morning and her fever was over 101 degrees. She has normal urination, normal bowel movements. - Related Data Allergies/Adverse Reactions: atorvastatin [From Lipitor] Allergy (Verified 01/26/20 09:38) carbamazepine [From Tegretol] Allergy (Verified 01/26/20 09:38) levofloxacin [From Levaquin] Allergy (Verified 01/26/20 09:38) Home Medications: PreserVision, cholestyramine Past Medical History - General Information source: Patient - Social History Smoking Status: Never Smoker Frequency of alcohol use: None Drug Abuse: None Family History: Reviewed & Not Pertinent Patient has homicidal ideation: No - Past Medical History Cardiac Medical History: Reports: Hx Coronary Artery Disease, Hx Hypercholesterolemia, Hx Hypertension Denies: Hx Heart Attack Pulmonary Medical History: Reports: Hx Pneumonia Denies: Hx Asthma, Hx Bronchitis, Hx COPD Neurological Medical History: Reports: Hx Cerebrovascular Accident, Hx Seizures. Denies: Hx Migraine Endocrine Medical History: Denies: Hx Diabetes Mellitus Type 1, Hx Diabetes Mellitus Type 2 Renal/ Medical History: Denies: Hx Peritoneal Dialysis Musculoskeletal Medical History: Reports Hx Arthritis Past Surgical History: Reports: Hx Section, Hx Cholecystectomy, Hx Orthopedic Surgery, Hx Tonsillectomy - Immunizations Hx Diphtheria, Pertussis, Tetanus Vaccination: No Hx Pneumococcal Vaccination: 06/26/20 Review of Systems - Review of Systems Constitutional: See HPI Gastrointestinal: See HPI -: Yes All other systems reviewed and negative Physical Exam - Vital signs Vitals: Temp Pulse Resp BP Pulse Ox 97.4 F 74 18 132/78 H 100 01/26/20 09:29 01/26/20 09:29 01/26/20 09:29 01/26/20 09:01/26/20 09:29 - Notes Notes: This is an 84-year-old female who appears younger than her stated age, no acute distress. Vital signs reviewed, please refer to chart. Head is normocephalic, atraumatic. Pupils equal round, reactive to light. Mild scleral icterus. Neck is supple without meningismus. Heart is regular rate and rhythm. Lungs are clear to auscultation bilaterally. Abdomen is soft, mildly tender in the epigastric and right upper quadrant regions, no rebound or guarding, normoactive bowel sounds throughout. Extremities without cyanosis, clubbing. Posterior calves are nontender. Peripheral pulses are equal. Skin is warm and dry. Patient is awake, alert, neurological exam is nonfocal. Course - Re-evaluation Re-evalutation: 01/26/20 10:35 Patient presents to the emergency department for evaluation. Her recent p rocedure and evaluations by GI were reviewed. The patient has an elevated Ca1 19, had ERCP, and is being referred for possible evaluation of pancreatic mass. Patient denies any pain at this time. We will check blood work, give IV fluids, cultures were obtained. The patient is stable at this time, we will continue to monitor. 01/26/20 13:58 Patient's laboratory investigations reveal findings consistent with acute pancreatitis. CT scan shows fullness in the uncinate process of the pancreas, c oncerning for possible malignancy. Her bilirubin is climbing. I spoke with Dr. Perez, illuminating engineer on-call at [facility]. In short this patient was scheduled for endoscopic ultrasound on Tuesday. He had stated to daughter as well as the patient that in the case of acute pancreatitis this would likely need to be pushed back. I talked with Dr. Perez, we discussed her findings. He states that the ultrasound would be of course pushed back. He states there is a possibility she might need a repeat ERCP, but he does not see any need for that to be done emergently. He believes that at this point traditional pancreatitis treatment, including fluids, antibiotics, and possible eventual ERCP repeat in light of the climbing bilirubin would be appropriate. I spoke with GAUTAM Manjarrez, who is amenable to this plan. He will admit her for further care. - Vital Signs Vital signs: Temp Pulse Resp BP Pulse Ox 98.9 F 102 H 20 114/95 H 100 01/26/20 13:48 01/26/20 13:48 01/26/20 13:48 01/26/20 13:48 01/26/20 13:48 - Laboratory Result Diagrams: 01/26/20 10:45 01/26/20 10:45 Laboratory results interpreted by me: 01/26/20 01/26/20 01/26/20 10:45 10:45 10:45 RDW 14.4 H Lymph % (Auto) 11.7 L Seg Neutrophils % 80.0 H Sodium 131.7 L Chloride 97 L Total Bilirubin 3.8 H Direct Bilirubin 2.4 H AST 89 H ALT 106 H Alkaline Phosphatase 434 H Amylase 171 H Lipase 1297.4 H Urine Ascorbic Acid 20 H - Diagnostic Test Radiology reviewed: Image reviewed, Reports reviewed Radiology results interpreted by me: 01/26/20 13:59 Abdomen/Pelvis CT 01/26/20 11:47 IMPRESSION: 1. Fullness in the pancreatic uncinate process with duct dilatation and common duct stent in place. Underlying pancreatic malignancy should be considered. Patient appears to have had recent ERCP, please correlate with those results. No drainable peripancreatic fluid collections. Other findings as above. Discharge - Discharge Clinical Impression: Acute pancreatitis Qualifiers: Pancreatitis type: other Condition: Stable Disposition: ADMITTED INPATIENT Admitting Provider: Chente (Hospitalist) - GAUTAM Vale Unit Admitted: Medical Floor Referrals: MAIRA SHANNON MD [Primary Care Provider] - Follow up as needed
[2020-01-26 11:17] LABS: ABSOLUTE EOSINOPHILS # (AUTO) 0.1 10^3/uL (0.0-0.6); ABSOLUTE LYMPHOCYTES (AUTO) 0.8 10^3/uL (0.5-4.7); ABSOLUTE MONOCYTES (AUTO) 0.5 10^3/uL (0.1-1.4); ABSOLUTE NEUT (AUTO) 5.2 10^3/uL (1.7-8.2); BASOPHILS % (AUTO) 0.2 % (0-2); EOSINOPHILS % (AUTO) 0.8 % (0-6); HEMATOCRIT 39.6 % (36.0-47.0); HEMOGLOBIN 13.6 g/dL (12.0-15.5); LYMPHOCYTES % (AUTO) 11.7 % (13-45); MEAN CORPUSCULAR HEMOGLOBIN 28.7 pg (27.0-33.4); MEAN CORPUSCULAR HGB CONC 34.4 g/dL (32.0-36.0); MEAN CORPUSCULAR VOLUME 84 fl (80-97); MONOCYTES % (AUTO) 7.3 % (3-13); PLATELET COUNT 217 10^3/uL (150-450); RED BLOOD COUNT 4.75 10^6/uL (3.72-5.28); RED CELL DISTRIBUTION WIDTH 14.4 % (11.5-14.0); TOTAL CELLS COUNTED % (AUTO) 100 %; WHITE BLOOD COUNT 6.5 10^3/uL (4.0-10.5)
[2020-01-26 11:38] LABS: APPEARANCE,URINE CLEAR; BILIRUBIN,URINE NEGATIVE (NEGATIVE); COLOR,URINE AMBER; GLUCOSE, URINE NEGATIVE (NEGATIVE); KETONES,URINE NEGATIVE (NEGATIVE); LEUKOCYTE ESTERASE,URINE NEGATIVE (NEGATIVE); NITRITE,URINE NEGATIVE (NEGATIVE); PROTEIN,URINE NEGATIVE (NEGATIVE); URINE SPECIFIC GRAVITY 1.013; UROBILINOGEN,URINE NEGATIVE mg/dL (<2.0)
[2020-01-26 11:39] LABS: ALBUMIN 4.1 g/dL (3.5-5.0); ALKALINE PHOSPHATASE 434 U/L (38-126); AMYLASE 171 U/L (30-110); ANION GAP 9 (5-19); ASPARTATE AMINO TRANSFERASE 89 U/L (14-36); BILIRUBIN,DIRECT 2.4 mg/dL (0.0-0.4); BILIRUBIN,TOTAL 3.8 mg/dL (0.2-1.3); BLOOD UREA NITROGEN 12 mg/dL (7-20); CALCIUM 9.3 mg/dL (8.4-10.2); CARBON DIOXIDE 26 mmol/L (22-30); CHLORIDE 97 mmol/L (98-107); GLUCOSE 104 mg/dL (75-110); POTASSIUM 4.2 mmol/L (3.6-5.0); TOTAL PROTEIN 6.8 g/dL (6.3-8.2)
--- NOTE | 2020-01-26 13:01 | RADIOLOGY REPORT (SQ) ---
EXAM DESCRIPTION: CT ABD/PELVIS WITH IV ONLY IMAGES COMPLETED DATE/TIME: 01/26/2020 12:36 pm REASON FOR STUDY: pancreatitis COMPARISON: 2017. TECHNIQUE: CT scan of the abdomen and pelvis performed using helical scanning technique with dynamic intravenous contrast injection. No oral contrast. Images reviewed with lung, soft tissue, and bone windows. Reconstructed coronal and sagittal MPR images reviewed. Delayed images for evaluation of the urinary system also acquired. All images stored on PACS. All CT scanners at this facility use dose modulation, iterative reconstruction, and/or weight based d osing when appropriate to reduce radiation dose to as low as reasonably achievable (ALARA). [facility]: Dose Right [facility]: CareDose [facility]: Dose Right [facility]: Teradose 4D [facility]: DocsInk CONTRAST TYPE AND DOSE: contrast/concentration: Isovue 350.00 mg/ml; Total Contrast Delivered: 56.0 ml; Total Saline Delivered: 65.0 ml RENAL FUNCTION: GFR > 60. RADIATION DOSE: CT Rad equipment meets quality standard of care and radiation dose reduction techniq ues were employed. CTDIvol: 4.8 - 5.1 mGy. DLP: 488 mGy-cm.. LIMITATIONS: None. FINDINGS: LOWER CHEST: No significant findings. No nodules or infiltrates. LIVER: Pneumobilia. No liver lesions. SPLEEN: Normal size. No focal lesions. PANCREAS: Variable pancreatic duct dilatation. Common duct stent in place. Fullness in the uncinate process, potentially mass. Focal pancreatitis is in the differential. No peripancreatic fat strand ing or fluid, however. GALLBLADDER: Surgically absent. ADRENAL GLANDS: No significant masses or asymmetry. RIGHT KIDNEY AND URETER: Cysts. No obstruction. 2 cm bilobed appearing angiomyolipoma, stable. LEFT KIDNEY AND URETER: No solid masses. No significant calcification. No hydronephrosis or hydrouret er. AORTA AND VESSELS: Atherosclerotic without aneurysm or dissection or arterial occlusion or venous brady t detected. RETROPERITONEUM: No retroperitoneal adenopathy, hemorrhage or masses. BOWEL AND PERITONEAL CAVITY: No masses or inflammatory changes. No free fluid or peritoneal masses. APPENDIX: Not visualized. PELVIS: No mass. No free fluid. Normal bladder. ABDOMINAL WALL: No masses. No hernias. BONES: No significant or acute findings. OTHER: No other significant finding. IMPRESSION: 1. Fullness in the pancreatic uncinate process with duct dilatation and common duct stent in place. Underlying pancreatic malignancy should be considered. Patient appears to have had recent ERCP, pleas e correlate with those results. No drainable peripancreatic fluid collections. Other findings as ab ove. TECHNICAL DOCUMENTATION: JOB ID: [id number] Quality ID # [id number]: Final reports with documentation of one or more dose reduction techniques (e.g., Au tomated exposure control, adjustment of the mA and/or kV according to patient size, use of iterative reconstruction technique) 2010 [employer]- All Rights Reserved Reading location - IP/workstation name: [email or web address]
[2020-01-26] MEDS ORDERED: ACETAMINOPHEN 650 MG SUPP.RECT PR PRN (14:53)
[2020-01-26] MEDS ORDERED: ONDANSETRON HCL INJ/PF 4 MG/2 ML SDV IV PRN (14:53)
[2020-01-26] MEDS ORDERED: DEXTROSE 50%-WATER 25 GM/50 ML DISP.SYRIN IV PRN ×2 (14:53)
[2020-01-26] MEDS ORDERED: GLUCAGON,HUMAN RECOMB 1 MG INJ SUBCUT PRN (14:53)
[2020-01-26] MEDS ORDERED: ONDANSETRON 4 MG TAB.RAPDIS PO PRN (14:53)
[2020-01-26] MEDS ORDERED: DEXTROSE 40% GEL 15 GM TUBE PO PRN ×2 (14:53)
--- NOTE | 2020-01-26 15:32 | PDOC H&P ---
History of Present Illness Admission Date/PCP: 01/26/20 14:09 MAIRA SHANNON MD History of Present Illness: SHARITA CORNELL is a 84 year old female who was admitted with 24 hours of low-grade fever and abdominal pain, nausea. Patient's history begins back in 25 December when she started having fatigue changes in the color of her stool to where they were more orange and urine discoloration more orange. Patient also had significant total body "itching". On January 17 patient had an ERCP and a stenting with sphincterotomy. She states that yesterday afternoon after getting blood work she started having some mid epigastric pain and last night around 0 300 she had a temperature of 99.5 and earlier this morning 101. His senior landscape architect in [place] was called. She was scheduled to have a endoscopy ultrasound on Tuesday, to rule out malignancy, howover that has been delayed now and Dr. Perez the senior landscape architect, has recommended that we treat her for pancreatitis since she appears to have that both by CT scan as well as lab studies. I plan to call patient's senior landscape architect here in [place] ,Dr. Shannon, tomorrow or Tuesday based on how she is doing. Spoken to the patient's daughter Caroline Aranda and also spoken to the patient in great detail that we are going to give her IV fluids, keep her n.p.o., place her on IV antibiotics and observe her for the next 24 to 36 hours. He is agreeable to this treatment plan. Past Medical History Cardiac Medical History: Reports: Coronary Artery Disease, Hyperlipidema, Hypertension Denies: Myocardial Infarction Pulmonary Medical History: Reports: Pneumonia Denies: Asthma, Bronchitis, Chronic Obstructive Pulmonary Disease (COPD) Neurological Medical History: Reports: Seizures Denies: Migraine Endocrine Medical History: Denies: Diabetes Mellitus Type 1, Diabetes Mellitus Type 2 Musculoskeltal Medical History: Reports: Arthritis Hematology: Reports: Anemia Past Surgical History Past Surgical History: Reports: Section, Cholecystectomy, Orthopedic Surgery, Tonsillectomy Social History Smoking Status: Never Smoker Frequency of Alcohol Use: None Hx Recreational Drug Use: No Drugs: None Hx Prescription Drug Abuse: No - Advance Directive Resuscitation Status: Full Code Family History Family History: Reviewed & Not Pertinent Parental Family History Reviewed: No Children Family History Reviewed: No Sibling(s) Family History Reviewed.: No Medication/Allergy Home Medications: Cholestyramine (with Sugar) [Cholestyramine Powder] 4 gm PO TID 01/26/20 Vit A/Vit C/Vit E/Zinc/Copper [Preservision Areds Softgel] 1 each PO DAILY 01/26/20 Allergies/Adverse Reactions: atorvastatin [From Lipitor] Allergy (Verified 01/26/20 09:38) carbamazepine [From Tegretol] Allergy (Verified 01/26/20 09:38) levofloxacin [From Levaquin] Allergy (Verified 01/26/20 09:38) Review of Systems Constitutional: PRESENT: fatigue, fever(s), weakness Cardiovascular: ABSENT: chest pain, dyspnea on exertion, edema, orthropnea, palpitations Respiratory: ABSENT: cough, hemoptysis Gastrointestinal: PRESENT: abdominal pain, nausea Neurological: ABSENT: abnormal gait, abnormal speech, confusion, dizziness, foca l weakness, syncope Psychiatric: ABSENT: anxiety, depression, homidical ideation, suicidal ideation Physical Exam Vital Signs: Temp Pulse Resp BP Pulse Ox 98.9 F 102 H 20 114/95 H 100 01/26/20 13:48 01/26/20 13:48 01/26/20 13:48 01/26/20 13:48 01/26/20 13:48 Intake & Output 01/25/20 01/26/20 01/27/20 06:59 06:59 06:59 Intake Total 500 Balance 500 Weight 49.442 kg General appearance: PRESENT: mild distress Respiratory exam: PRESENT: clear to auscultation ricardo. ABSENT: rales, rhonchi, wheezes Cardiovascular exam: PRESENT: RRR. ABSENT: diastolic murmur, rubs, systolic murmur GI/Abdominal exam: PRESENT: diminished bowel sounds, tenderness - Mild tenderness to the epigastric region, no guarding no rebound Neurological exam: PRESENT: alert, awake, oriented to person, oriented to place, oriented to time, oriented to situation, CN II-XII grossly intact. ABSENT: motor sensory deficit Psychiatric exam: PRESENT: appropriate affect, normal mood. ABSENT: homicidal ideation, suicidal ideation Results Laboratory Results: 01/26/20 10:45 01/26/20 10:45 01/26/20 01/26/20 01/26/20 10:45 10:45 10:45 WBC 6.5 RBC 4.75 Hgb 13.6 Hct 39.6 MCV 84 MCH 28.7 MCHC 34.4 RDW 14.4 H Plt Count 217 Seg Neutrophils % 80.0 H Sodium 131.7 L Potassium 4.2 Chloride 97 L Carbon Dioxide 26 Anion Gap 9 BUN 12 Creatinine 0.65 Est GFR ( Amer) > 60 Glucose 104 Calcium 9.3 Total Bilirubin 3.8 H AST 89 H Alkaline Phosphatase 434 H Total Protein 6.8 Albumin 4.1 Amylase 171 H Lipase 1297.4 H Urine Color ALEXYS Urine Appearance CLEAR Urine pH 5.0 Ur Specific [place] 1.013 Urine Protein NEGATIVE Urine Glucose (UA) NEGATIVE Urine Ketones NEGATIVE Urine Blood NEGATIVE Urine Nitrite NEGATIVE Ur Leukocyte Esterase NEGATIVE Urine WBC (Auto) 2 Urine RBC (Auto) 1 Impressions: Abdomen/Pelvis CT 01/26/20 11:47 IMPRESSION: 1. Fullness in the pancreatic uncinate process with duct dilatation and common duct stent in place. Underlying pancreatic malignancy should be considered. Patient appears to have had recent ERCP, please correlate with those results. No drainable peripancreatic fluid collections. Other findings as above. Assessment and Plan - Diagnosis (1) Acute pancreatitis Qualifiers: Pancreatitis type: other Is this a current diagnosis for this admission?: Yes (2) Generalized weakness Is this a current diagnosis for this admission?: Yes (3) Seizure disorder Is this a current diagnosis for this admission?: Yes (4) Weakness Is this a current diagnosis for this admission?: Yes (5) Pancreatic mass Is this a current diagnosis for this admission?: Yes (6) Abdominal pain Is this a current diagnosis for this admission?: Yes - Plan Summary Summary: I agree with the senior landscape architect of [place] that we will admit her for IV fluids, n.p.o., IV antibiotics and watch her closely. I plan to call her senior landscape architect tomorrow with an update. Repeat labs in the morning. Patient is a full code and agrees with this plan - Time Time Spent with patient: 35 or more minutes
[2020-01-26] MEDS ORDERED: MORPHINE SULFATE 10 MG/ML INJ IV PRN (15:33)
[2020-01-26] MEDS ORDERED: HYDRALAZINE HCL INJ/PF 20 MG/1 ML SDV IV PRN (15:34)
[2020-01-26 15:59] LABS: INTERNATIONAL RATION (INR) 0.97; PROTHROMBIN TIME 12.9 SEC (11.4-15.4)
[2020-01-26] MEDS: NORMAL SALINE 1000 ML 1,000 ML IV PRN ×2 (16:15→23:21)
[2020-01-26] MEDS: PIPERACILLIN SODIUM/TAZOBACTAM 3.375 GM in NORMAL SALINE 100 ML IV SCH ×2 (17:34→23:20)
[2020-01-26] MEDS ORDERED: LORAZEPAM 0.5 MG TABLET PO PRN (18:26)
[2020-01-26] MEDS: FAMOTIDINE INJ/PF 20 MG/2 ML SDV IV SCH (21:39)
[2020-01-27] MEDS: PIPERACILLIN SODIUM/TAZOBACTAM 3.375 GM in NORMAL SALINE 100 ML IV SCH ×4 (05:09→23:12)
[2020-01-27 05:42] LABS: ABSOLUTE LYMPHOCYTES (AUTO) 0.6 10^3/uL (0.5-4.7); ABSOLUTE MONOCYTES (AUTO) 0.4 10^3/uL (0.1-1.4); ABSOLUTE NEUT (AUTO) 3.2 10^3/uL (1.7-8.2); BASOPHILS % (AUTO) 0.2 % (0-2); EOSINOPHILS % (AUTO) 0.6 % (0-6); HEMATOCRIT 33.5 % (36.0-47.0); HEMOGLOBIN 11.7 g/dL (12.0-15.5); LYMPHOCYTES % (AUTO) 13.9 % (13-45); MEAN CORPUSCULAR HEMOGLOBIN 28.5 pg (27.0-33.4); MEAN CORPUSCULAR HGB CONC 34.8 g/dL (32.0-36.0); MEAN CORPUSCULAR VOLUME 82 fl (80-97); MONOCYTES % (AUTO) 8.6 % (3-13); PLATELET COUNT 164 10^3/uL (150-450); RED BLOOD COUNT 4.08 10^6/uL (3.72-5.28); RED CELL DISTRIBUTION WIDTH 14.1 % (11.5-14.0); SEGMENTED NEUTROPHILS % (AUTO) 76.7 % (42-78); TOTAL CELLS COUNTED % (AUTO) 100 %; WHITE BLOOD COUNT 4.2 10^3/uL (4.0-10.5)
[2020-01-27 06:02] LABS: ALBUMIN 2.8 g/dL (3.5-5.0); ALKALINE PHOSPHATASE 301 U/L (38-126); AMYLASE 72 U/L (30-110); ANION GAP 8 (5-19); ASPARTATE AMINO TRANSFERASE 119 U/L (14-36); BLOOD UREA NITROGEN 13 mg/dL (7-20); CALCIUM 8.1 mg/dL (8.4-10.2); CARBON DIOXIDE 21 mmol/L (22-30); CHLORIDE 106 mmol/L (98-107); CHOLESTEROL 154.64 mg/dL (0-200); GLUCOSE 100 mg/dL (75-110); POTASSIUM 3.7 mmol/L (3.6-5.0); TOTAL PROTEIN 5.2 g/dL (6.3-8.2); TRIGLYCERIDES 100 mg/dL (<150)
[2020-01-27 06:13] LABS: DIRECT LDL 142 mg/dL (<100)
[2020-01-27] MEDS: NORMAL SALINE 1000 ML 1,000 ML IV PRN ×2 (07:30→21:59)
[2020-01-27] MEDS: FAMOTIDINE INJ/PF 20 MG/2 ML SDV IV SCH ×2 (10:40→21:59)
[2020-01-27] MEDS: ENOXAPARIN SODIUM INJ 40 MG/0.4 ML DISP.SYRIN SUBCUT SCH (10:40)
[2020-01-27] MEDS: ALBUMIN HUMAN 12.5 GM/50 ML RTUINJ IV SCH ×2 (10:44→12:45)
--- NOTE | 2020-01-27 11:06 | PDOC PROGRESS REPORT ---
Subjective Progress Note for:: 01/27/20 Reason For Visit: PANCREATITIS, ABDOMINAL PAIN,FEVER,CAD,HYPERLIPI 01/27/2020 Pancreatic mass, pancreatitis, fever, vague abdominal pain Physical Exam Vital Signs: Temp Pulse Resp BP Pulse Ox 99.9 F 86 16 146/60 H 99 01/27/20 08:30 01/27/20 07:19 01/27/20 07:19 01/27/20 07:19 01/27/20 07:19 Intake & Output 01/26/20 01/27/20 01/28/20 06:59 06:59 06:59 Intake Total 1688 1000 Balance 1688 1000 Weight 53.8 kg General appearance: PRESENT: no acute distress Respiratory exam: PRESENT: clear to auscultation ricardo. ABSENT: rales, rhonchi, wheezes Cardiovascular exam: PRESENT: RRR. ABSENT: diastolic murmur, rubs, systolic murmur GI/Abdominal exam: PRESENT: hypoactive bowel sounds, tenderness - Minimal tenderness left lower quadrant and epigastric region no guarding no rebound Neurological exam: PRESENT: alert, awake, oriented to person, oriented to place, oriented to time, oriented to situation, CN II-XII grossly intact. ABSENT: motor sensory deficit Psychiatric exam: PRESENT: appropriate affect, normal mood. ABSENT: homicidal ideation, suicidal ideation Results Laboratory Results: 01/27/20 05:09 01/27/20 05:09 01/26/20 01/26/20 01/26/20 10:45 10:45 10:45 WBC 6.5 RBC 4.75 Hgb 13.6 Hct 39.6 MCV 84 MCH 28.7 MCHC 34.4 RDW 14.4 H Plt Count 217 Seg Neutrophils % 80.0 H Sodium 131.7 L Potassium 4.2 Chloride 97 L Carbon Dioxide 26 Anion Gap 9 BUN 12 Creatinine 0.65 Est GFR ( Amer) > 60 Glucose 104 Calcium 9.3 Magnesium Total Bilirubin 3.8 H AST 89 H Alkaline Phosphatase 434 H Ammonia Total Protein 6.8 Albumin 4.1 Triglycerides Cholesterol LDL Cholesterol Direct VLDL Cholesterol HDL Cholesterol Amylase 171 H Lipase 1297.4 H Urine Color ALEXYS Urine Appearance CLEAR Urine pH 5.0 Ur Specific [place] 1.013 Urine Protein NEGATIVE Urine Glucose (UA) NEGATIVE Urine Ketones NEGATIVE Urine Blood NEGATIVE Urine Nitrite NEGATIVE Ur Leukocyte Esterase NEGATIVE Urine WBC (Auto) 2 Urine RBC (Auto) 1 01/26/20 01/27/20 01/27/20 15:36 05:09 05:09 WBC 4.2 RBC 4.08 Hgb 11.7 L Hct 33.5 L MCV 82 MCH 28.5 MCHC 34.8 RDW 14.1 H Plt Count 164 Seg Neutrophils % 76.7 Sodium 134.6 L Potassium 3.7 Chloride 106 Carbon Dioxide 21 L Anion Gap 8 BUN 13 Creatinine 0.59 Est GFR ( Amer) > 60 Glucose 100 Calcium 8.1 L Magnesium 1.7 Total Bilirubin 3.0 H AST 119 H Alkaline Phosphatase 301 H Ammonia < 8.7 L Total Protein 5.2 L Albumin 2.8 L Triglycerides 100 Cholesterol 154.64 LDL Cholesterol Direct 142 H VLDL Cholesterol 20.0 HDL Cholesterol 23 L Amylase 72 Lipase 531.4 H Urine Color Urine Appearance Urine pH Ur Specific [place] Urine Protein Urine Glucose (UA) Urine Ketones Urine Blood Urine Nitrite Ur Leukocyte Esterase Urine WBC (Auto) Urine RBC (Auto) Impressions: Abdomen/Pelvis CT 01/26/20 11:47 IMPRESSION: 1. Fullness in the pancreatic uncinate process with duct dilatation and common duct stent in place. Underlying pancreatic malignancy should be considered. Patient appears to have had recent ERCP, please correlate with those results. No drainable peripancreatic fluid collections. Other findings as above. Assessment and Plan - Diagnosis (1) Acute pancreatitis Qualifiers: Pancreatitis type: other Is this a current diagnosis for this admission?: Yes (2) Generalized weakness Is this a current diagnosis for this admission?: Yes (3) Seizure disorder Is this a current diagnosis for this admission?: Yes (4) Weakness Is this a current diagnosis for this admission?: Yes (5) Pancreatic mass Is this a current diagnosis for this admission?: Yes (6) Abdominal pain Is this a current diagnosis for this admission?: Yes - Plan Summary Summary: I agree with the disassembler of [place] that we will admit her for IV fluids, n.p.o., IV antibiotics and watch her closely. I plan to call her disassembler tomorrow with an update. Repeat labs in the morning. Patient is a full code and agrees with this plan 01/27/2020 All day yesterday and up until early this morning at 0700 patient was afebrile. At that time she spiked a fever to 102.6. With Tylenol it is come down to 99.9 Blood pressure stable O2 sat 99% on room air White blood cell count on admission 6.5 today 4.2 Bilirubins are significantly better LFTs are slightly worse alkaline phos is als o better Albumin is low , protein is low Amylase is improved from 171 down to 72 lipase is better down from [id number] Armstrong morning and spoke to him by the phone he is very familiar with the patient he agrees that the patient does not appear to be obstructed and that the stent is functioning. He remembers that her bilirubins were up in the eights before the stenting procedure so he says that she is not obstructed. He is unsure as to why she is running a fever but agrees with the antibiotics. Also says that based on the CAT scan and his previous examinations and tests he thinks that she has a pancreatic cancer. He thinks that the best thing is to still get her down to [place] for her ultrasound. Cultures will be back tomorrow, I am going to continue the Zosyn since she is improving. There is no indication at this time to proceed with another CAT scan. Patient does not appear to be septic or toxic. I am going to keep her n.p.o.. Continue IV fluids as well. I will explain all of this to the patient this afternoon - Time Time Spent with patient: 25-34 minutes
[2020-01-28] MEDS: PIPERACILLIN SODIUM/TAZOBACTAM 3.375 GM in NORMAL SALINE 100 ML IV SCH (05:19)
[2020-01-28 06:34] LABS: HEMATOCRIT 31.5 % (36.0-47.0); MEAN CORPUSCULAR HEMOGLOBIN 28.6 pg (27.0-33.4); MEAN CORPUSCULAR HGB CONC 34.8 g/dL (32.0-36.0); MEAN CORPUSCULAR VOLUME 82 fl (80-97); PLATELET COUNT 143 10^3/uL (150-450); RED BLOOD COUNT 3.84 10^6/uL (3.72-5.28); RED CELL DISTRIBUTION WIDTH 14.5 % (11.5-14.0); WHITE BLOOD COUNT 3.3 10^3/uL (4.0-10.5)
[2020-01-28 06:57] LABS: ALBUMIN 2.7 g/dL (3.5-5.0); ALKALINE PHOSPHATASE 234 U/L (38-126); ANION GAP 9 (5-19); ASPARTATE AMINO TRANSFERASE 80 U/L (14-36); BILIRUBIN,DIRECT 1.5 mg/dL (0.0-0.4); BILIRUBIN,TOTAL 2.4 mg/dL (0.2-1.3); BLOOD UREA NITROGEN 11 mg/dL (7-20); CALCIUM 7.9 mg/dL (8.4-10.2); CARBON DIOXIDE 21 mmol/L (22-30); CHLORIDE 105 mmol/L (98-107); POTASSIUM 3.6 mmol/L (3.6-5.0); TOTAL PROTEIN 4.9 g/dL (6.3-8.2)
[2020-01-28 06:59] LABS: ABSOLUTE LYMPHOCYTES# (MANUAL) 0.8 10^3/uL (0.5-4.7); ABSOLUTE MONOCYTES # (MANUAL) 0.1 10^3/uL (0.1-1.4); BASOPHILS % (MANUAL) 1 % (0-2); EOSINOPHILS % (MANUAL) 1 % (0-6); LYMPHOCYTES % (MANUAL) 20 % (13-45); MONOCYTES % (MANUAL) 4 % (3-13); SEGMENTED NEUTROPHILS % (MAN) 71 % (42-78); TOTAL CELLS COUNTED 100
[2020-01-28 07:00] LABS: GLUCOSE 66 mg/dL (75-110); OVALOCYTES SLIGHT; PLATELET COMMENT DECREASED; POIKILOCYTOSIS SLIGHT
[2020-01-28] MEDS: FAMOTIDINE INJ/PF 20 MG/2 ML SDV IV SCH (09:40)
[2020-01-28] MEDS: NORMAL SALINE 1000 ML 1,000 ML IV PRN (09:40)
[2020-01-28] MEDS ORDERED: ONDANSETRON HCL INJ/PF 4 MG/2 ML SDV IV PRN (10:30)
[2020-01-28] MEDS ORDERED: ONDANSETRON 4 MG TAB.RAPDIS PO PRN (10:30)
[2020-01-28] MEDS ORDERED: HYDRALAZINE HCL INJ/PF 20 MG/1 ML SDV IV PRN (10:30)
[2020-01-28] MEDS: ENOXAPARIN SODIUM INJ 40 MG/0.4 ML DISP.SYRIN SUBCUT SCH (11:03)
--- NOTE | 2020-01-28 12:49 | Progress Note ---
Provider Note Provider Note: Spoke to Dr. Perez who is a brick catcher in [place] this morning. He is more than happy to see the patient at the end of the week either Tuesday or Tuesday to do his EUS, which had been scheduled for today. If patient able to tolerate a full liquid lunch with no nausea or vomiting I am going to discharge her home today on p.o. antibiotics. She is afebrile this morning temperature 98.7 pulse 68 blood pressure 113/59 and O2 sat 99% on room air she is agreeable to this. Patient's lab values have improved dramatically.
[2020-01-28 14:14] VITALS: BP 116/63
--- NOTE | 2020-01-28 14:58 | PDOC DISCHARGE SUMMARY ---
Impression - Admit/DC Date/PCP Admission Date/Primary Care Provider: 01/26/20 14:09 MAIRA SHANNON MD Discharge Date: 01/28/20 - Discharge Diagnosis (1) Acute pancreatitis Is this a current diagnosis for this admission?: Yes (2) Generalized weakness Is this a current diagnosis for this admission?: Yes (3) Seizure disorder Is this a current diagnosis for this admission?: Yes (4) Weakness Is this a current diagnosis for this admission?: Yes (5) Pancreatic mass Is this a current diagnosis for this admission?: Yes (6) Abdominal pain Is this a current diagnosis for this admission?: Yes - Assessment Summary: I agree with the family counselor of [place] that we will admit her for IV fluids, n.p.o., IV antibiotics and watch her closely. I plan to call her family counselor tomorrow with an update. Repeat labs in the morning. Patient is a full code and agrees with this plan 01/27/2020 All day yesterday and up until early this morning at 0700 patient was afebrile. At that time she spiked a fever to 102.6. With Tylenol it is come down to 99.9 Blood pressure stable O2 sat 99% on room air White blood cell count on admission 6.5 today 4.2 Bilirubins are significantly better LFTs are slightly worse alkaline phos is also better Albumin is low , protein is low Amylase is improved from 171 down to 72 lipase is better down from 1297-[address] Shannon morning and spoke to him by the phone he is very familiar with the patient he agrees that the patient does not appear to be obstructed and that the stent is functioning. He remembers that her bilirubins were up in the eights before the stenting procedure so he says that she is not obstructed. He is unsure as to why she is running a fever but agrees with the antibiotics. Also says that based on the CAT scan and his previous examinations and tests he thinks that she has a pancreatic cancer. He thinks that the best thing is to still get her down to [place] for her ultrasound. Cultures will be back tomorrow, I am going to continue the Zosyn since she is improving. There is no indication at this time to proceed with another CAT scan. Patient does not appear to be septic or toxic. I am going to keep her n.p.o.. Continue IV fluids as well. I will explain all of this to the patient this afternoon 01/28/2020 Patient was discharged today to home I wrote a prescription for Zofran ODT as needed although patient has had no vomiting since she has been in the hospital I also wrote for clindamycin 150 mg 3 times a day for the next 6 days. Review Cipro however it was contraindicated with the Zofran due to extended QT length. I spoke to the family counselor in [place] this morning and he is more than happy to do her endoscopic ultrasound later this week. This is being done to rule out possible pancreatic cancer. This morning patient did not have a fever and this was the original issue why she was admitted to the hospital. Lipase on admission was 1297, went down to 531 and today it is 414 White blood cell count today is 3.3 Patient's pancreatitis by lipase levels has improved. Patient's fever has lessened. He was discharged home on p.o. antibiotics other diagnostic studies of her pancreas. - Additional Information Resuscitation Status: Full Code Discharge Diet: Clear Liquids, Full Liquids, Other (Comments) Discharge Activity: Activity As Tolerated Referrals: JAIME PEREZ MD [NO LOCAL MD] - (NO ANSWER AT PROVIDER'S OFFICE. A MESSAGE FOR GENOVEVA (THE TEAM PSYCHOLOGIST FOR DR. PEREZ) WAS LEFT WITH PATIENT INFO/PHONE # SO AN APPT. CAN BE SCHEDULED FOR PATIENT.) Prescriptions: Lorazepam [Ativan 0.5 mg Tablet] 0.25 mg PO HSP PRN 10 Days #10 tablet PRN Reason: Clindamycin HCl [Cleocin HCl] 150 mg PO Q8 6 Days #18 capsule Ondansetron [Zofran Odt 4 mg Tablet] 4 mg PO Q6HP PRN 6 Days #20 tab.rapdis PRN Reason: Home Medications: Vit A/Vit C/Vit E/Zinc/Copper [Preservision Areds Softgel] 1 each PO DAILY 01/26/20 Acetaminophen [Tylenol 650 mg Supp] 650 mg IN Q4HP PRN supp.rect 01/28/20 Clindamycin HCl [Cleocin HCl] 150 mg PO Q8 6 Days #18 capsule 01/28/20 Lorazepam [Ativan 0.5 mg Tablet] 0.25 mg PO HSP PRN 10 Days #10 tablet 05/04/20 Ondansetron [Zofran Odt 4 mg Tablet] 4 mg PO Q6HP PRN 6 Days #20 tab.rapdis 01/28/20 History of Present Illiness History of Present Illness: SHARITA CORNELL is a 84 year old female who was admitted with 24 hours of low- grade fever and abdominal pain, nausea. Patient's history begins back in 25 December when she started having fatigue changes in the color of her stool to where they were more orange and urine discoloration more orange. Patient also had significant total body "itching". On January 17 patient had an ERCP and a stenting with sphincterotomy. She states that yesterday afternoon after getting blood work she started having some mid epigastric pain and last night around 0 300 she had a temperature of 99.5 and earlier this morning 101. His family counselor in [place] was called. She was scheduled to have a endoscopy ultrasound on Tuesday, to rule out malignancy, howover that has been delayed now and Dr. Perez the family counselor, has recommended that we treat her for pancreatitis since she appears to have that both by CT scan as well as lab studies. I plan to call patient's family counselor here in [place] ,Dr. Shannon, tomorrow or Tuesday based on how she is doing. Spoken to the patient's daughter Caroline Aranda and also spoken to the patient in great detail that we are going to give her IV fluids, keep her n.p.o., place her on IV antibiotics and observe her for the next 24 to 36 hours. He is agreeable to this treatment plan. Physical Exam Vital Signs: Temp Pulse Resp BP Pulse Ox 98.2 F 62 17 116/63 99 01/28/20 14:10 01/28/20 14:10 01/28/20 14:10 01/28/20 14:10 01/28/20 14:10 Intake & Output 01/27/20 01/28/20 01/29/20 06:59 06:59 06:59 Intake Total 1688 3400 0 Balance 1688 3400 0 Weight 53.8 kg 54.4 kg Results Laboratory Results: WBC 3.3 10^3/uL (4.0-10.5) L 01/28/20 05:12 RBC 3.84 10^6/uL (3.72-5.28) 01/28/20 05:12 Hgb 11.0 g/dL (12.0-15.5) L 01/28/20 05:12 Hct 31.5 % (36.0-47.0) L 01/28/20 05:12 MCV 82 fl (80-97) 01/28/20 05:12 MCH 28.6 pg (27.0-33.4) 01/28/20 05:12 MCHC 34.8 g/dL (32.0-36.0) 01/28/20 05:12 RDW 14.5 % (11.5-14.0) H 01/28/20 05:12 Plt Count 143 10^3/uL (150-450) L 01/28/20 05:12 Lymph % (Auto) Not Reportable 01/28/20 05:12 Sutton % (Auto) Not Reportable 01/28/20 05:12 Eos % (Auto) Not Reportable 01/28/20 05:12 Baso % (Auto) Not Reportable 01/28/20 05:12 Absolute Neuts (auto) Not Reportable 01/28/20 05:12 Absolute Lymphs (auto) Not Reportable 01/28/20 05:12 Absolute Monos (auto) Not Reportable 01/28/20 05:12 Absolute Eos (auto) Not Reportable 01/28/20 05:12 Absolute Basos (auto) Not Reportable 01/28/20 05:12 Total Counted 100 01/28/20 05:12 Seg Neutrophils % Not Reportable 01/28/20 05:12 Seg Neuts % (Manual) 71 % (42-78) 01/28/20 05:12 Lymphocytes % (Manual) 20 % (13-45) 01/28/20 05:12 Atypical Lymphs % 3 % (0) 01/28/20 05:12 Monocytes % (Manual) 4 % (3-13) 01/28/20 05:12 Eosinophils % (Manual) 1 % (0-6) 01/28/20 05:12 Basophils % (Manual) 1 % (0-2) 01/28/20 05:12 Abs Neuts (Manual) 2.3 10^3/uL (1.7-8.2) 01/28/20 05:12 Abs Lymphs (Manual) 0.8 10^3/uL (0.5-4.7) 01/28/20 05:12 Abs Monocytes (Manual) 0.1 10^3/uL (0.1-1.4) 01/28/20 05:12 Absolute Eos (Manual) 0.0 10^3/uL (0.0-0.6) 01/28/20 05:12 Abs Basophils (Manual) 0.0 10^3/uL (0.0-0.2) 01/28/20 05:12 Platelet Comment DECREASED 01/28/20 05:12 Poikilocytosis SLIGHT 01/28/20 05:12 Ovalocytes SLIGHT 01/28/20 05:12 PT 12.9 SEC (11.4-15.4) 01/26/20 15:36 INR 0.97 01/26/20 15:36 APTT 29.9 SEC (23.5-35.8) 01/27/20 05:09 Sodium 134.8 mmol/L (137-145) L 01/28/20 05:12 Potassium 3.6 mmol/L (3.6-5.0) 01/28/20 05:12 Chloride 105 mmol/L (98-107) 01/28/20 05:12 Carbon Dioxide 21 mmol/L (22-30) L 01/28/20 05:12 Anion Gap 9 (5-19) 01/28/20 05:12 BUN 11 mg/dL (7-20) 01/28/20 05:12 Creatinine 0.54 mg/dL (0.52-1.25) 01/28/20 05:12 Est GFR ( Amer) > 60 (>60) 01/28/20 05:12 Est GFR (MDRD) Non-Af > 60 (>60) 01/28/20 05:12 Glucose 66 mg/dL (75-110) L 01/28/20 05:12 POC Glucose 174 mg/dL (70-110) H 01/28/20 07:33 Calcium 7.9 mg/dL (8.4-10.2) L 01/28/20 05:12 Magnesium 1.7 mg/dL (1.6-2.3) 01/27/20 05:09 Total Bilirubin 2.4 mg/dL (0.2-1.3) H 01/28/20 05:12 Direct Bilirubin 1.5 mg/dL (0.0-0.4) H 01/28/20 05:12 Neonat Total Bilirubin Not Reportable 01/28/20 05:12 Neonat Direct Bilirubin Not Reportable 01/28/20 05:12 Neonat Indirect Bili Not Reportable 01/28/20 05:12 AST 80 U/L (14-36) H 01/28/20 05:12 ALT 86 U/L (<35) H 01/28/20 05:12 Alkaline Phosphatase 234 U/L (38-126) H 01/28/20 05:12 Ammonia < 8.7 umol/L (9-33) L 01/26/20 15:36 Total Protein 4.9 g/dL (6.3-8.2) L 01/28/20 05:12 Albumin 2.7 g/dL (3.5-5.0) L 01/28/20 05:12 Triglycerides 100 mg/dL (<150) 01/27/20 05:09 Cholesterol 154.64 mg/dL (0-200) 01/27/20 05:09 LDL Cholesterol Direct 142 mg/dL (<100) H 01/27/20 05:09 VLDL Cholesterol 20.0 mg/dL (10-31) 01/27/20 05:09 HDL Cholesterol 23 mg/dL (>40) L 01/27/20 05:09 Amylase 72 U/L (30-110) 01/27/20 05:09 Lipase 414.5 U/L (23-300) H 01/28/20 05:12 Urine Color ALEXYS 01/26/20 10:45 Urine Appearance CLEAR 01/26/20 10:45 Urine pH 5.0 (5.0-9.0) 01/26/20 10:45 Ur Specific Brilliant 1.013 01/26/20 10:45 Urine Protein NEGATIVE mg/dL (NEGATIVE) 01/26/20 10:45 Urine Glucose (UA) NEGATIVE mg/dL (NEGATIVE) 01/26/20 10:45 Urine Ketones NEGATIVE mg/dL (NEGATIVE) 01/26/20 10:45 Urine Blood NEGATIVE (NEGATIVE) 01/26/20 10:45 Urine Nitrite NEGATIVE (NEGATIVE) 01/26/20 10:45 Urine Bilirubin NEGATIVE (NEGATIVE) 01/26/20 10:45 Urine Urobilinogen NEGATIVE mg/dL (<2.0) 01/26/20 10:45 Ur Leukocyte Esterase NEGATIVE (NEGATIVE) 01/26/20 10:45 Urine WBC (Auto) 2 /HPF 01/26/20 10:45 Urine RBC (Auto) 1 /HPF 01/26/20 10:45 Urine Bacteria (Auto) TRACE /HPF 01/26/20 10:45 Squamous Epi Cells Auto <1 /HPF 01/26/20 10:45 Urine Mucus (Auto) FEW /LPF 01/26/20 10:45 Urine Ascorbic Acid 20 (NEGATIVE) H 01/26/20 10:45 Impressions: Abdomen/Pelvis CT 01/26/20 11:47 IMPRESSION: 1. Fullness in the pancreatic uncinate process with duct dilatation and common duct stent in place. Underlying pancreatic malignancy should be considered. Patient appears to have had recent ERCP, please correlate with those results. No drainable peripancreatic fluid collections. Other findings as above. Stroke Is this a Stroke Patient?: No Acute Heart Failure - Is this a Heart Failure Patient?: No
== END 2020-01-28 16:29 | disposition home or self-care (01) | DRG 440 ==
LOC: ER 09:26 → EH 14:09 → 4N 15:14
PROVIDERS: ADMIT Internal Medicine; ATTEND Physician Assistant
DX: K85.80 Other acute pancreatitis without necrosis or infection (principal); I25.10 Atherosclerotic heart disease of native coronary artery without angina pectoris; E78.5 Hyperlipidemia, unspecified; K86.9 Disease of pancreas, unspecified; I10 Essential (primary) hypertension; M19.90 Unspecified osteoarthritis, unspecified site; D64.9 Anemia, unspecified; Z90.49 Acquired absence of other specified parts of digestive tract; Z88.1 Allergy status to other antibiotic agents; Z88.8 Allergy status to other drugs, medicaments and biological substances; G40.909 Epilepsy, unspecified, not intractable, without status epilepticus; Z96.89 Presence of other specified functional implants
CPT/HCPCS: 36415; 74177; 80053; 80061; 80076; 81001; 82140; 82150; 82962; 83690; 83735; 85025; 85610; 85730; 87040; 96365; 96366; 99285; J1650; J2270; J2543; J3490; J7030; J7040; J7050; P9047; S0028

== ENCOUNTER → 2020-02-07 | Outpatient (CLI) | payer MEDICARE, OTHER ==
[2020-02-07 11:06] LABS: HEMOGLOBIN 11.6 g/dL (12.0-15.5); MEAN CORPUSCULAR HEMOGLOBIN 27.9 pg (27.0-33.4); MEAN CORPUSCULAR HGB CONC 34.1 g/dL (32.0-36.0); MEAN CORPUSCULAR VOLUME 82 fl (80-97); PLATELET COUNT 286 10^3/uL (150-450); RED BLOOD COUNT 4.16 10^6/uL (3.72-5.28); RED CELL DISTRIBUTION WIDTH 14.8 % (11.5-14.0); WHITE BLOOD COUNT 4.4 10^3/uL (4.0-10.5)
[2020-02-07 11:31] LABS: ALBUMIN 3.8 g/dL (3.5-5.0); ALKALINE PHOSPHATASE 390 U/L (38-126); ANION GAP 7 (5-19); ASPARTATE AMINO TRANSFERASE 203 U/L (14-36); BILIRUBIN,DIRECT 1.8 mg/dL (0.0-0.4); BILIRUBIN,TOTAL 2.8 mg/dL (0.2-1.3); BLOOD UREA NITROGEN 8 mg/dL (7-20); CARBON DIOXIDE 28 mmol/L (22-30); CHLORIDE 101 mmol/L (98-107); GLUCOSE 106 mg/dL (75-110); POTASSIUM 4.2 mmol/L (3.6-5.0); TOTAL PROTEIN 6.4 g/dL (6.3-8.2)
[2020-02-07 11:32] LABS: APPEARANCE,URINE SLIGHTLY-CLOUDY; BILIRUBIN,URINE SMALL (NEGATIVE); CALCIUM OXALATE CRYSTALS,URINE FEW /HPF; COLOR,URINE AMBER; GLUCOSE, URINE NEGATIVE (NEGATIVE); KETONES,URINE NEGATIVE (NEGATIVE); LEUKOCYTE ESTERASE,URINE NEGATIVE (NEGATIVE); NITRITE,URINE NEGATIVE (NEGATIVE); PROTEIN,URINE NEGATIVE (NEGATIVE); URINE SPECIFIC GRAVITY 1.017
== END ==
LOC: OD 10:34
PROVIDERS: ATTEND Internal Medicine Gastroenterology
DX: C25.0 Malignant neoplasm of head of pancreas (principal)
CPT/HCPCS: 36415; 80048; 80076; 81001; 83690; 85027